=== PATIENT | female | born 1990 | race Caucasian/White ===

== ENCOUNTER 2020-07-07 11:02 | Emergency (ER) | payer OTHER, MEDICAID, SELFPAY ==
[2020-07-07 11:10] VITALS: BP 196/128; PULSE 89; RESP 20; TEMP 36.8; O2SAT 98; BMI 30.2
--- NOTE | 2020-07-07 11:17 | XR_ITS ---
EXAMINATION: XR CHEST CLINICAL INFORMATION: Shortness of breath COMPARISON: Chest radiographs 04/16/2019, 04/13/2018 TECHNIQUE: Portable upright AP view of the chest was obtained. FINDINGS: There is small airspace opacity adjacent to cardiac apex left base, consistent with small pneumonia in the appropriate clinical setting. The remainder the lungs are clear. The vascularity is normal. There is no effusion. The heart is normal in size. The hilar and mediastinal contours and bony structures are unremarkable. XR/XR chest 1V IMPRESSION: Small infiltrate left base consistent with pneumonia in the appropriate clinical setting. No effusion.
--- NOTE | 2020-07-07 11:17 | ECG_ITS ---
Test Reason : ASTHMA Blood Pressure : / mmHG Vent. Rate : 075 BPM Atrial Rate : 075 BPM P-R Int : 172 ms QRS Dur : 076 ms QT Int : 392 ms P-R-T Axes : 042 031 018 degrees QTc Int : 437 ms Normal sinus rhythm Normal ECG When compared with ECG of 27-JUL-2014 18:04, T wave amplitude has decreased in Anterior leads Referred By: Rebecca Burrell Electronically Signed By:DILIP MARQUEZ MD
--- NOTE | 2020-07-07 11:21 | ED.ASTHMA ---
HPI - Asthma General Chief Complaint: Recheck/Abnormal Lab/Rx <Rebecca Burrell NP - Last Filed: 07/07/20 16:10> Stated Complaint: Asthma <Rebecca Burrell NP - Last Filed: 07/07/20 16:10> Time Seen by Provider: 07/07/20 11:11 <Rebceca Burrell NP - Last Filed: 07/07/20 16:10> Source: patient <Rebecca Burrell NP - Last Filed: 07/07/20 16:10> Mode of arrival: ambulatory <Rebecca Burrell NP - Last Filed: 07/07/20 16:10> Limitations: no limitations <Rebecca Burrell NP - Last Filed: 07/07/20 16:10> History of Present Illness HPI Narrative: 30-year-old female with a past medical history of asthma and hypertension here from [facility]. The patient was seen at [facility] this morning for asthma symptoms of cough and wheezing x 1 week. While she was there she was noted to have a blood pressure of 204/148. patient tells me she has a mild headache. No chest pain, vision changes, nausea or vomiting. She takes labetalol 200 mg BID and has been on this dose for 5 years. She tells me she does follow-up with and always has high blood pressure. This is higher than her normal blood pressure however. No changes in her medication. She has been medication compliant. She tells me this feels like her typical asthma flare and it normally response to p.o. prednisone for a few days. she did run out of her inhaler recently. History multiple admits for asthma. Last admit 1 year ago. No history of intubations. <Rebecca Burrell NP - Last Filed: 07/07/20 16:10> MD complaint: asthma attack , shortness of breath and wheezing <MESERET Carpenter Last Filed: 07/07/20 16:10> Onset (ago): week(s) (1 week ) <EMSERET Carpenter Last Filed: 07/07/20 16:10> Severity: mild <MESERET Carpenter Last Filed: 07/07/20 16:10> Context: ran out of meds <Rebecca Burrell NP - Last Filed: 07/07/20 16:10> Associated symptoms: dry cough <Rebecca Burrell NP - Last Filed: 07/07/20 16:10> Asthma History: childhood onset <MESERET Carpenter Last Filed: 07/07/20 16:10> Related Data Home Medications: Previous Rx's Medication Instructions Recorded albuterol sulfate 2 inh INHALATION Q4-6H PRN #1 ea 07/07/20 azithromycin 250 mg PO DAILY 4 Days #4 tab 07/07/20 lisinopril 10 mg PO DAILY #30 tab 07/07/20 prednisone 40 mg PO DAILY #10 tab 07/07/20 <Rebecca Burrell NP - Last Filed: 07/07/20 16:10> Allergies/Adverse Reactions: Allergies Allergy/AdvReac Type Severity Reaction Status Date / Time No Known Allergies Allergy Unverified 04/22/20 16:02 [No Known Allergies*] <Rebecca Burrell NP - Last Filed: 07/07/20 16:10> Review of Systems Review of Systems: Yes all other systems are reviewed and are negative <MESERET Carpenter Last Filed: 07/07/20 16:10> Constitutional: Constitutional: Reports no additional constitutional complaints, Denies body ache(s), Denies chills, Denies fever(s), Reports headache(s) and Denies weakness <Rebecca Burrell NP - Last Filed: 07/07/20 16:10> Eyes: Eyes: Reports no additional eye complaints and Denies change in vision <Rebecca Burrell NP - Last Filed: 07/07/20 16:10> ENT: Reports system reviewed and no additional complaints, except as documented, Denies dizziness, Reports headache(s), Denies nasal congestion, Denies nasal discharge and Denies neck pain <MESERET Carpenter Last Filed: 07/07/20 16:10> Cardiovascular: Cardiovascular: Reports no additional cardiovascular complaints, Denies chest pain, Denies leg edema and Reports dyspnea <Rebecca Burrell NP - Last Filed: 07/07/20 16:10> Respiratory: Respiratory: Reports no additional respiratory complaints, Reports cough, Reports dyspnea and Reports wheezing <Rebecca Burrell NP - Last Filed: 07/07/20 16:10> Gastrointestinal: Gastrointestinal: Reports no additional gastrointestinal complaints, Denies abdominal pain, Denies diarrhea, Denies nausea and Denies vomiting <Rebceca Burrell NP - Last Filed: 07/07/20 16:10> Genitourinary: Genitourinary: Reports no additional female genitourinary complaints and Denies urinary incontinence <Rebecca Burrell NP - Last Filed: 07/07/20 16:10> Musculoskeletal: Musculoskeletal: Reports no additional musculoskeletal complaints, Denies back pain, Denies arthralgias, Denies joint swelling, Denies neck pain, Denies numbness and Denies tingling <Rebecca Burrell NP - Last Filed: 07/07/20 16:10> Integumentary/Breasts: Skin/Breast: Reports system reviewed and no additional complaints, except as docu and Denies rash <Rebecca Burrell NP - Last Filed: 07/07/20 16:10> Neurologic: Reports system reviewed and no additional complaints, except as documented, Denies Abnormal speech present, Denies dizziness, Reports headache(s), Denies numbness, Denies tingling and Denies weakness <Rebecca Burrell NP - Last Filed: 07/07/20 16:10> Allergic/Immunologic: Allergic/Immunologic: Reports wheezing <Rebecca Burrell NP - Last Filed: 07/07/20 16:10> [facility] Past Medical History Attestation statement: The following information was validated with the patient. <Rebecca Burrell NP - Last Filed: 07/07/20 16:10> Source: old records reviewed and nursing notes reviewed <Rebecca Burrell NP - Last Filed: 07/07/20 16:10> Medical History: Medical History Asthma Blindness Deaf HTN (hypertension) <Rebecca Burrell NP - Last Filed: 07/07/20 16:10> Social History Social History: Social History Alcohol intake: never Smoking Status: Current some day smoker Use of substances other than those prescribed or required for medical reasons: Yes Substance Use Type: Marijuana Substance Use Frequency: Occasionally Advance Directives: No Advance Directives Information Provided: No <Rebecca Burrell NP - Last Filed: 07/07/20 16:10> Physical Exam Vital Signs: Vital Signs: Last Vital Signs Temp 98.3 F 07/07/20 11:10 Pulse 89 07/07/20 14:18 Resp 20 07/07/20 11:10 BP 167/117 H 07/07/20 14:18 Pulse Ox 98 07/07/20 11:10 Body Mass Index 30.2 <Rebecca Burrell NP - Last Filed: 07/07/20 16:10> Vital Signs: Last Vital Signs Temp 98.3 F 07/07/20 11:10 Pulse 89 07/07/20 14:18 Resp 20 07/07/20 11:10 BP 167/117 H 07/07/20 14:18 Pulse Ox 98 07/07/20 11:10 Body Mass Index 30.2 <Cricket Arguello MD - Last Filed: 07/07/20 11:30> Const: General: cooperative, healthy appearing, comfortable and no acute distress <Rebecca Burrell NP - Last Filed: 07/07/20 16:10> Orientation/consciousness: patient oriented x3 <Rebecca Burrell NP - Last Filed: 07/07/20 16:10> Limitations: no limitations <Rebecca Burrell NP - Last Filed: 07/07/20 16:10> HENMT: Head: Yes normal to inspection <Rebecca Burrell NP - Last Filed: 07/07/20 16:10> Ears: hearing grossly normal bilaterally <Rebecca Burrell NP - Last Filed: 07/07/20 16:10> General nose exam: Normal external nose present <Rebecca Burrell NP - Last Filed: 07/07/20 16:10> Face and sinus: Yes normal facial exam <Rebecca Burrell NP - Last Filed: 07/07/20 16:10> Mouth: Normal oral and palatal mucosa present <Rebecca Burrell NP - Last Filed: 07/07/20 16:10> Throat: Yes posterior oropharynx normal <Rebecca Burrell NP - Last Filed: 07/07/20 16:10> Eyes: General: appearance normal, both eyes and all related structures <Rebecca Burrell NP - Last Filed: 07/07/20 16:10> Pupils: Equal, round and reactive pupils present <Rebecca Burrell NP - Last Filed: 07/07/20 16:10> Neck: Neck: Yes normal visual inspection <Rebecca Burrell NP - Last Filed: 07/07/20 16:10> Chest: Chest palpation & inspection: normal inspection of the chest <Rebecca Burrell NP - Last Filed: 07/07/20 16:10> Resp: Other: Mild expiratory wheezing. Patient is speaking full sentences in no apparent distress <Rebecca Burrell NP - Last Filed: 07/07/20 16:10> Effort & Inspection: normal respiratory effort <Rebecca Burrell NP - Last Filed: 07/07/20 16:10> Auscultation: clear to auscultation bilaterally <Rebecca Burrell NP - Last Filed: 07/07/20 16:10> Cardio: Rate: regular rate <Rebecca Burrell NP - Last Filed: 07/07/20 16:10> Rhythm: regular rhythm <Rebecca Burrell NP - Last Filed: 07/07/20 16:10> Peripheral pulses: Peripheral pulses 2+ throughout <Rebecca Burrell NP - Last Filed: 07/07/20 16:10> GI: Inspection: Yes normal to inspection <Rebecca Burrell NP - Last Filed: 07/07/20 16:10> Palpation (GI): Soft to palpation and nontender <Rebecca Burrell NP - Last Filed: 07/07/20 16:10> Auscultation: normal bowel sounds <Rebecca Burrell NP - Last Filed: 07/07/20 16:10> Back/Spine/Pelvis: Thoracic/Lumbar Spine: thoracic and lumbar spine normal to inspection <Rebecca Burrell NP - Last Filed: 07/07/20 16:10> Skin: General skin exam: no rashes or lesions noted <Rebecca Burrell NP - Last Filed: 07/07/20 16:10> Neuro: General: patient oriented x3, no focal motor deficits and normal sensation to monofilament <Rebecca Burrell NP - Last Filed: 07/07/20 16:10> Cranial nerves: Yes CN's II-XII intact bilaterally, Yes Equal, round and reactive pupils present, Yes Bilaterally intact EOM present, Yes Nystagmus not present, Yes Normal facial strength present and Yes Midline tongue present <Rebecca Burrell NP - Last Filed: 07/07/20 16:10> Cognition (Neuro): normal cognition <Rebecca Burrell NP - Last Filed: 07/07/20 16:10> Speech: No Abnormal speech present <Rebecca Burrell NP - Last Filed: 07/07/20 16:10> Gait exam (Neuro): Normal gait present <Rebecca Burrell NP - Last Filed: 07/07/20 16:10> Motor exam (neuro): 5/5 motor strength present throughout <Rebecca Burrell NP - Last Filed: 07/07/20 16:10> Sensory Exam: Normal double simultaneous stimulation for sensation <Rebecca Burrell NP - Last Filed: 07/07/20 16:10> Coordination: [id number] test normal, [id number] test normal and tandem gait normal <Rebecca Burrell NP - Last Filed: 07/07/20 16:10> Extrem: General: Yes normal to inspection <Rebecca Burrell NP - Last Filed: 07/07/20 16:10> Course Course Course Narrative: 30-year-old female with a past medical history of asthma and hypertension here with cough, wheezing which she contributes to an asthma flare and high blood pressure. Seen at [facility] and sent to emergency department for high blood pressure. The patient tells me she has had head pressure for years and has been compliant with her medication. On arrival the patient has a blood pressure of 196/128 and repeat 220/140. She does have a headache with no other neurological complaints. She is well appearing. Will check labs, EKG, UA. Will plan for dose of IV antihypertensives and p.o. anti hypertensives. Discussed case with dr arguello. 1150- Chest x-ray shows a left lower lobe infiltrate. COVID testing sent. Antibiotics ordered. 1230-Repeat blood pressure 186/126. Heart rate 80. plan to repeat labetaolol. 1420- blood pressure now 167/117 after several doses of labetalol. Patient would like to be discharged home. She is feeling improved. Likely asthma flare with uncontrolled hypertension. Plan to discuss patient with her primary care doctor for close follow-up outpatient. labs reviewed which were unremarkable. The patient does have 1+ protein in her urine otherwise all negative. EKG shows no ischemia. 1430-Reached out to patient's PCP who tells me she has not seen the patient since 2015. Per patient Dr Leland shaffer title closer has been refilling her labetalol. Will discuss with them for f/u. 1559- spoke to Dr. Andrew from nephrology. Recommended lisinopril 10 mg daily and follow up 1-2 days and their office. Reviewed plan of care with patient. Discussed importance of close follow-up with her blood pressure was very high today. Reviewed worrisome signs and symptoms and when to return to the emergency department. Comfortable with discharge home. <Rebecca Burrell NP - Last Filed: 07/07/20 16:10> I have discussed the case and management with the LINNETTE <Cricket Arguello MD - Last Filed: 07/07/20 11:30> MDM - Asthma Medical Records Attestation: I reviewed the patient's medical records. <Rebecca Burrell NP - Last Filed: 07/07/20 16:10> Lab Data Attestation: I reviewed the patient's lab results. <Rebecca Burrell NP - Last Filed: 07/07/20 16:10> Result diagrams: : 07/07/20 11:49 07/07/20 11:49 <Rebecca Burrell, OSTEOLOGIST - Last Filed: 07/07/20 16:10> Labs: Lab Results 07/07/20 07/07/20 07/07/20 Range/Units 11:49 11:49 11:49 WBC 13.5 H (4.8-10.8) X10*3/uL RBC 5.18 (4.20-5.50) X10*6/uL Hgb 16.8 H (12.0-16.0) g/dl Hct 47.6 H (37-47) % MCV 91.9 (80-98) fL MCH 32.4 (27.0-33.0) pg MCHC 35.3 H (31.0-35.0) g/dl RDW 11.9 (11.0-16.0) % Plt Count 266 (160-400) X10*3/uL MPV 10.4 (9.4-12.3) fL Immature Gran % (Auto) 0.4 (0.0-0.4) % Neut % (Auto) 75.9 H (45-73) % Lymph % (Auto) 16.8 L (20-40) % [place] % (Auto) 6.0 (2-11) % Eos % (Auto) 0.5 (0-4) % Baso % (Auto) 0.4 (0-2) % Lymph # (Auto) 2.3 (1.2-4.9) X10*3/uL [place] # (Auto) 0.8 (0.1-1.2) X10*3/uL Eos # (Auto) 0.1 (0.0-0.4) X10*3/uL Baso # (Auto) 0.1 (0.0-0.2) X10*3/uL Abs Immat Gran (auto) 0.06 H (0.00-0.03) X10*3/uL Absolute Neuts (auto) 10.3 H (2.0-8.3) X10*3/uL Absolute Nucleated RBC 0.000 (0.0-0.012) X10*3/uL Nucleated RBC % (auto) 0.0 (0.0-0.2) /100WBC Hold Blue Top Sodium 139 (135-145) mmol/L Potassium 3.6 (3.3-5.1) mmol/l Chloride 103 (96-108) mmol/L Carbon Dioxide 26 (22-29) mmol/L Anion Gap 14 (12-20) BUN 6 L (9-16) mg/dL Creatinine 0.63 (0.5-1.4) mg/dL Estim Creat Clear Calc 123.6 Estimated GFR > 60 Random Glucose 92 (60-115) mg/dL Calcium 9.4 (8.4-10.2) mg/dL Total Bilirubin 0.8 (0.0-1.0) mg/dL Direct Bilirubin 0.3 (0.0-0.5) mg/dL AST 9 (5-31) U/L ALT 9 (0-31) U/L Alkaline Phosphatase 54 (39-117) U/L Troponin I High Sens < 3.5 (<3.5-17.0) ng/L Total Protein 7.2 (6.5-8.0) g/dL Albumin 4.5 (3.5-5.0) g/dL Urine Color Urine Appearance Urine pH (5.0-8.0) Ur Specific Gilbert (1.005-1.025) Urine Protein (NEG-TRACE) MG/DL Urine Glucose (UA) (NEG) MG/DL Urine Ketones (NEG) MG/DL Urine Blood (NEG) Urine Nitrite (NEG) Ur Leukocyte Esterase (NEG) Urine RBC (0) /HPF Urine WBC (0-4) /HPF Ur Squamous Epith Cells /LPF Urine Bacteria /LPF Urine Mucus /LPF Urine Test (NEGATIVE) Coronavirus (PCR) (Negative) Influenza Type A (PCR) (Negative) Influenza Type B (PCR) (Negative) RSV RNA Qual (PCR) (Negative) 07/07/20 07/07/20 07/07/20 Range/Units 11:49 12:18 13:21 WBC (4.8-10.8) X10*3/uL RBC (4.20-5.50) X10*6/uL Hgb (12.0-16.0) g/dl Hct (37-47) % MCV (80-98) fL MCH (27.0-33.0) pg MCHC (31.0-35.0) g/dl RDW (11.0-16.0) % Plt Count (160-400) X10*3/uL MPV (9.4-12.3) fL Immature Gran % (Auto) (0.0-0.4) % Neut % (Auto) (45-73) % Lymph % (Auto) (20-40) % [place] % (Auto) (2-11) % Eos % (Auto) (0-4) % Baso % (Auto) (0-2) % Lymph # (Auto) (1.2-4.9) X10*3/uL [place] # (Auto) (0.1-1.2) X10*3/uL Eos # (Auto) (0.0-0.4) X10*3/uL Baso # (Auto) (0.0-0.2) X10*3/uL Abs Immat Gran (auto) (0.00-0.03) X10*3/uL Absolute Neuts (auto) (2.0-8.3) X10*3/uL Absolute Nucleated RBC (0.0-0.012) X10*3/uL Nucleated RBC % (auto) (0.0-0.2) /100WBC Hold Blue Top SEE NOTE Sodium (135-145) mmol/L Potassium (3.3-5.1) mmol/l Chloride (96-108) mmol/L Carbon Dioxide (22-29) mmol/L Anion Gap (12-20) BUN (9-16) mg/dL Creatinine (0.5-1.4) mg/dL Estim Creat Clear Calc Estimated GFR Random Glucose (60-115) mg/dL Calcium (8.4-10.2) mg/dL Total Bilirubin (0.0-1.0) mg/dL Direct Bilirubin (0.0-0.5) mg/dL AST (5-31) U/L ALT (0-31) U/L Alkaline Phosphatase (39-117) U/L Troponin I High Sens (<3.5-17.0) ng/L Total Protein (6.5-8.0) g/dL Albumin (3.5-5.0) g/dL Urine Color YELLOW Urine Appearance HAZY Urine pH 6.5 (5.0-8.0) Ur Specific Gilbert 1.025 (1.005-1.025) Urine Protein 1+ H (NEG-TRACE) MG/DL Urine Glucose (UA) NEG (NEG) MG/DL Urine Ketones 15 (NEG) MG/DL Urine Blood NEG (NEG) Urine Nitrite NEG (NEG) Ur Leukocyte Esterase TRACE H (NEG) Urine RBC 1-4 (0) /HPF Urine WBC 1-4 (0-4) /HPF Ur Squamous Epith Cells 3+ /LPF Urine Bacteria 1+ /LPF Urine Mucus 2+ /LPF Urine Test NEGATIVE (NEGATIVE) Coronavirus (PCR) NEGATIVE (Negative) Influenza Type A (PCR) NEGATIVE (Negative) Influenza Type B (PCR) NEGATIVE (Negative) RSV RNA Qual (PCR) NEGATIVE (Negative) <Rebecca Burrell NP - Last Filed: 07/07/20 16:10> Lab Results 07/07/20 07/07/20 07/07/20 Range/Units 11:49 11:49 11:49 WBC 13.5 H (4.8-10.8) X10*3/uL RBC 5.18 (4.20-5.50) X10*6/uL Hgb 16.8 H (12.0-16.0) g/dl Hct 47.6 H (37-47) % MCV 91.9 (80-98) fL MCH 32.4 (27.0-33.0) pg MCHC 35.3 H (31.0-35.0) g/dl RDW 11.9 (11.0-16.0) % Plt Count 266 (160-400) X10*3/uL MPV 10.4 (9.4-12.3) fL Immature Gran % (Auto) 0.4 (0.0-0.4) % Neut % (Auto) 75.9 H (45-73) % Lymph % (Auto) 16.8 L (20-40) % [place] % (Auto) 6.0 (2-11) % Eos % (Auto) 0.5 (0-4) % Baso % (Auto) 0.4 (0-2) % Lymph # (Auto) 2.3 (1.2-4.9) X10*3/uL [place] # (Auto) 0.8 (0.1-1.2) X10*3/uL Eos # (Auto) 0.1 (0.0-0.4) X10*3/uL Baso # (Auto) 0.1 (0.0-0.2) X10*3/uL Abs Immat Gran (auto) 0.06 H (0.00-0.03) X10*3/uL Absolute Neuts (auto) 10.3 H (2.0-8.3) X10*3/uL Absolute Nucleated RBC 0.000 (0.0-0.012) X10*3/uL Nucleated RBC % (auto) 0.0 (0.0-0.2) /100WBC Hold Blue Top Sodium 139 (135-145) mmol/L Potassium 3.6 (3.3-5.1) mmol/l Chloride 103 (96-108) mmol/L Carbon Dioxide 26 (22-29) mmol/L Anion Gap 14 (12-20) BUN 6 L (9-16) mg/dL Creatinine 0.63 (0.5-1.4) mg/dL Estim Creat Clear Calc 123.6 Estimated GFR > 60 Random Glucose 92 (60-115) mg/dL Calcium 9.4 (8.4-10.2) mg/dL Total Bilirubin 0.8 (0.0-1.0) mg/dL Direct Bilirubin 0.3 (0.0-0.5) mg/dL AST 9 (5-31) U/L ALT 9 (0-31) U/L Alkaline Phosphatase 54 (39-117) U/L Troponin I High Sens < 3.5 (<3.5-17.0) ng/L Total Protein 7.2 (6.5-8.0) g/dL Albumin 4.5 (3.5-5.0) g/dL Urine Color Urine Appearance Urine pH (5.0-8.0) Ur Specific Gilbert (1.005-1.025) Urine Protein (NEG-TRACE) MG/DL Urine Glucose (UA) (NEG) MG/DL Urine Ketones (NEG) MG/DL Urine Blood (NEG) Urine Nitrite (NEG) Ur Leukocyte Esterase (NEG) Urine RBC (0) /HPF Urine WBC (0-4) /HPF Ur Squamous Epith Cells /LPF Urine Bacteria /LPF Urine Mucus /LPF Urine Test (NEGATIVE) Coronavirus (PCR) (Negative) Influenza Type A (PCR) (Negative) Influenza Type B (PCR) (Negative) RSV RNA Qual (PCR) (Negative) 07/07/20 07/07/20 07/07/20 Range/Units 11:49 12:18 13:21 WBC (4.8-10.8) X10*3/uL RBC (4.20-5.50) X10*6/uL Hgb (12.0-16.0) g/dl Hct (37-47) % MCV (80-98) fL MCH (27.0-33.0) pg MCHC (31.0-35.0) g/dl RDW (11.0-16.0) % Plt Count (160-400) X10*3/uL MPV (9.4-12.3) fL Immature Gran % (Auto) (0.0-0.4) % Neut % (Auto) (45-73) % Lymph % (Auto) (20-40) % [place] % (Auto) (2-11) % Eos % (Auto) (0-4) % Baso % (Auto) (0-2) % Lymph # (Auto) (1.2-4.9) X10*3/uL [place] # (Auto) (0.1-1.2) X10*3/uL Eos # (Auto) (0.0-0.4) X10*3/uL Baso # (Auto) (0.0-0.2) X10*3/uL Abs Immat Gran (auto) (0.00-0.03) X10*3/uL Absolute Neuts (auto) (2.0-8.3) X10*3/uL Absolute Nucleated RBC (0.0-0.012) X10*3/uL Nucleated RBC % (auto) (0.0-0.2) /100WBC Hold Blue Top SEE NOTE Sodium (135-145) mmol/L Potassium (3.3-5.1) mmol/l Chloride (96-108) mmol/L Carbon Dioxide (22-29) mmol/L Anion Gap (12-20) BUN (9-16) mg/dL Creatinine (0.5-1.4) mg/dL Estim Creat Clear Calc Estimated GFR Random Glucose (60-115) mg/dL Calcium (8.4-10.2) mg/dL Total Bilirubin (0.0-1.0) mg/dL Direct Bilirubin (0.0-0.5) mg/dL AST (5-31) U/L ALT (0-31) U/L Alkaline Phosphatase (39-117) U/L Troponin I High Sens (<3.5-17.0) ng/L Total Protein (6.5-8.0) g/dL Albumin (3.5-5.0) g/dL Urine Color YELLOW Urine Appearance HAZY Urine pH 6.5 (5.0-8.0) Ur Specific [place] 1.025 (1.005-1.025) Urine Protein 1+ H (NEG-TRACE) MG/DL Urine Glucose (UA) NEG (NEG) MG/DL Urine Ketones 15 (NEG) MG/DL Urine Blood NEG (NEG) Urine Nitrite NEG (NEG) Ur Leukocyte Esterase TRACE H (NEG) Urine RBC 1-4 (0) /HPF Urine WBC 1-4 (0-4) /HPF Ur Squamous Epith Cells 3+ /LPF Urine Bacteria 1+ /LPF Urine Mucus 2+ /LPF Urine Test NEGATIVE (NEGATIVE) Coronavirus (PCR) NEGATIVE (Negative) Influenza Type A (PCR) NEGATIVE (Negative) Influenza Type B (PCR) NEGATIVE (Negative) RSV RNA Qual (PCR) NEGATIVE (Negative) <Cricket Arguello MD - Last Filed: 07/07/20 11:30> Imaging Data Chest x-ray: Attestation: I personally reviewed and interpreted this imaging study as follows: <Rebecca Burrell NP - Last Filed: 07/07/20 16:10> Radiologist's impression: EXAMINATION: XR CHEST CLINICAL INFORMATION: Shortness of breath COMPARISON: Chest radiographs 04/16/2019, 04/13/2018 TECHNIQUE: Portable upright AP view of the chest was obtained. FINDINGS: There is small airspace opacity adjacent to cardiac apex left base, consistent with small pneumonia in the appropriate clinical setting. The remainder the lungs are clear. The vascularity is normal. There is no effusion. The heart is normal in size. The hilar and mediastinal contours and bony structures are unremarkable. XR/XR chest 1V IMPRESSION: Small infiltrate left base consistent with pneumonia in the appropriate clinical setting. No effusion. <Rebecca Burrell NP - Last Filed: 07/07/20 16:10> ECG Data Attestation: I personally reviewed and interpreted this ECG as follows: <Rebecca Burrell NP - Last Filed: 07/07/20 16:10> ECG interpretation date: 07/07/20 <Rebecca Burrell NP - Last Filed: 07/07/20 16:10> ECG interpretation time: 12:33 <Rebecca Burrell NP - Last Filed: 07/07/20 16:10> Interpretation: normal sinus rhythm with a rate of 75, normal FL, normal QRS, normal QT, normal ST segment <Rebecca Burrell NP - Last Filed: 07/07/20 16:10> Discharge Plan Discharge Clinical Impression: Pneumonia, Asthma with acute exacerbation, Hypertension <Rebecca Burrell NP - Last Filed: 07/07/20 16:10> Patient Disposition: Home, Self-Care <Rebecca Burrell NP - Last Filed: 07/07/20 16:10> Instructions: Asthma (ED), Bacterial Pneumonia (ED), Hypertension (ED) <Rebecca Burrell NP - Last Filed: 07/07/20 16:10> Additional Instructions: Your blood pressure was very high today. I spoke to your title closer and they recommended close follow-up with them in the office in 1-2 days Starter antibiotics and steroids tomorrow Use your inhaler every 4-6 hours as needed for cough or wheezing Increase fluids, rest Take Motrin or Tylenol if able as needed for pain or fever <Rebecca Burrell NP - Last Filed: 07/07/20 16:10> Prescriptions: New prednisone 20 mg tablet 40 mg PO DAILY Qty: 10 RF: 0 albuterol sulfate 90 mcg/actuation aerosol powdr breath activated 2 inh inhalation Q4-6H PRN (Reason: shortness of breath or wheezing) Qty: 1 RF: 0 azithromycin 250 mg tablet 250 mg PO DAILY 4 Days Qty: 4 RF: 0 lisinopril 10 mg tablet 10 mg PO DAILY Qty: 30 RF: 0 <Rebecca Burrell NP - Last Filed: 07/07/20 16:10> Referrals: Carlitos Ha MD [Physician] - 2 days Crissy Jimenez MD [Primary Care Provider] - 2 days <Rebecca Burrell NP - Last Filed: 07/07/20 16:10> Stand Alone Forms: Work/School Release <Rebecca Burrell NP - Last Filed: 07/07/20 16:10> Interventions: ED Discharge Assessment Last Done: 07/07/20 16:06 <Rebecca Burrell NP - Last Filed: 07/07/20 16:10> Discharge Date/Time: 07/07/20 16:06 <Rebecca Burrell NP - Last Filed: 07/07/20 16:10>
[2020-07-07] MEDS: Albuterol/Iprat 2.5/0.5MG 3 ML AMPUL.NEB INHALE (11:46)
--- NOTE | 2020-07-07 11:48 | PC.NURSE ---
2 attempts for iv stick unsuccessful
[2020-07-07 11:49] VITALS: PULSE 72; O2SAT 95
[2020-07-07 11:54] VITALS: BP 220/140; PULSE 85
[2020-07-07] MEDS: Labetalol HCL 100 MG/20 ML VIAL 10 MG IVPUSH ×3 (11:54→13:37)
[2020-07-07] MEDS: lisinopriL 20 MG TABLET PO (11:54)
[2020-07-07 11:55] LABS: MANUAL DIFF FLAG NO
[2020-07-07] MEDS: predniSONE 20 MG TABLET 60 MG PO (11:55)
[2020-07-07 11:56] LABS: Basophils Absolute Auto 0.1 X10*3/uL (0.0-0.2); Basophils Percent Auto 0.4 % (0-2); Eosinophils Absolute Auto 0.1 X10*3/uL (0.0-0.4); Eosinophils Percent Auto 0.5 % (0-4); Hematocrit 47.6 % (37-47); Hemoglobin 16.8 g/dl (12.0-16.0); Imm Gran Abs Auto 0.06 X10*3/uL (0.00-0.03); Imm Gran Pct Auto 0.4 % (0.0-0.4); Lymphocytes Absolute Auto 2.3 X10*3/uL (1.2-4.9); Lymphocytes Percent Auto 16.8 % (20-40); Mean Corpuscular HGB Conc 35.3 g/dl (31.0-35.0); Mean Corpuscular Hemoglobin 32.4 pg (27.0-33.0); Mean Corpuscular Volume 91.9 fL (80-98); Mean Platelet Volume 10.4 fL (9.4-12.3); Monocytes Absolute Auto 0.8 X10*3/uL (0.1-1.2); Neutrophils Absolute Auto 10.3 X10*3/uL (2.0-8.3); Neutrophils Percent Auto 75.9 % (45-73); Platelet Count 266 X10*3/uL (160-400); Red Blood Count 5.18 X10*6/uL (4.20-5.50); Red Cell Distribution Width 11.9 % (11.0-16.0); White Blood Count 13.5 X10*3/uL (4.8-10.8)
[2020-07-07] MEDS: Azithromycin 500 MG TABLET PO (12:01)
--- NOTE | 2020-07-07 12:05 | PC.NURSE ---
pt taken to ct scan via stretcher
[2020-07-07 12:25] LABS: Alanine Aminotransferase 9 U/L (0-31); Albumin Level 4.5 g/dL (3.5-5.0); Alkaline Phosphatase 54 U/L (39-117); Anion Gap 14 (12-20); Aspartate Amino Transferase 9 U/L (5-31); Bilirubin Direct 0.3 mg/dL (0.0-0.5); Bilirubin Total 0.8 mg/dL (0.0-1.0); Blood Urea Nitrogen 6 mg/dL (9-16); Calcium 9.4 mg/dL (8.4-10.2); Carbon Dioxide 26 mmol/L (22-29); Chloride 103 mmol/L (96-108); Creatinine Clr Calc Pharmacy 123.6; Estimated Glomerular Filt Rate > 60; Glucose Random 92 mg/dL (60-115); Potassium 3.6 mmol/l (3.3-5.1); Sodium 139 mmol/L (135-145); Total Protein 7.2 g/dL (6.5-8.0)
[2020-07-07 12:31] LABS: Troponin-I High Sensitivity < 3.5 ng/L (<3.5-17.0)
[2020-07-07 12:41] VITALS: BP 188/122; PULSE 85
[2020-07-07 13:21] LABS: Influenza A PCR NEGATIVE (Negative); Influenza B PCR NEGATIVE (Negative); Resp Syncy Virus RNA Qual PCR NEGATIVE (Negative); SARS COV2 PCR INHOUSE NEGATIVE (Negative)
[2020-07-07 13:30] LABS: Glucose Urine UA NEG (NEG); Leukocyte Esterase Urine TRACE (NEG); Nitrite Urine NEG (NEG); PH 6.5 (5.0-8.0); Specific Gravity - Urine 1.025 (1.005-1.025); Urine Blood NEG (NEG); Urine Ketones 15 MG/DL (NEG); Urine Protein 1+ MG/DL (NEG-TRACE)
[2020-07-07 13:34] LABS: Appearance Urine HAZY; Color Urine YELLOW
[2020-07-07 13:53] LABS: Bacteria Urine 1+ /LPF; Mucus Urine 2+ /LPF; Squamous Epithelial Cell Urine 3+ /LPF
[2020-07-07 14:18] VITALS: BP 167/117; PULSE 89
[2020-07-07 15:02] LABS: UPreg QC Valid YES; Urine Pregnancy NEGATIVE (NEGATIVE)
== END 2020-07-07 16:06 | disposition home or self-care (01) ==
PROVIDERS: Nurse Practitioner Family; Emergency Provider Emergency Medicine; PCP Internal Medicine
DX: J18.9 Pneumonia, unspecified organism (principal); J45.901 Unspecified asthma with (acute) exacerbation; R05 Cough; R51.9 Headache, unspecified; I10 Essential (primary) hypertension; F17.200 Nicotine dependence, unspecified, uncomplicated; Z71.6 Tobacco abuse counseling; F12.90 Cannabis use, unspecified, uncomplicated; Z20.828 Contact with and (suspected) exposure to other viral communicable diseases; Z79.899 Other long term (current) drug therapy
CPT/HCPCS: 0241U; 36415; 71045; 80048; 80076; 81001; 81025; 84484; 85025; 87086; 93005; 96374; 96376; 99284

== ENCOUNTER 2021-04-22 09:28 | Emergency (ER) | payer OTHER, MEDICAID, SELFPAY ==
--- NOTE | ~2021-04-22 | XR_ITS ---
EXAMINATION: XR CHEST CLINICAL INFORMATION: Cough/congestion COMPARISON: Chest radiograph from 07/07/2020 TECHNIQUE: 2 views of the chest were obtained. FINDINGS: Patchy radiopacities involving the medial right lung base and lateral left lung base may represent developing infectious/inflammatory etiology with superimposed atelectasis. No pneumothorax. Trachea is midline. Cardiomediastinal silhouette is not enlarged. No large pleural effusion. Osseous structures are intact. Soft tissues are unremarkable. XR/XR chest 2V IMPRESSION: Patchy radiopacities involving the medial right lung base and lateral left lung base may represent developing infectious/inflammatory etiology with superimposed atelectasis.
[2021-04-22 09:33] VITALS: PULSE 82; RESP 18; TEMP 36.6; O2SAT 99
--- NOTE | 2021-04-22 09:35 | PC.NURSE ---
x3 unable to obtain bp pt reports htn
--- NOTE | 2021-04-22 10:06 | ED_ITS ---
HPI - URI/Sore Throat General Chief Complaint: Upper Respiratory Symptoms Stated Complaint: asthma Time Seen by Provider: 04/22/21 09:57 Source: patient Mode of arrival: ambulatory Limitations: no limitations History of Present Illness HPI Narrative: This is a 30-year-old female with a past medical history of asthma. She presents to the emergency department with concerns of a productive cough that is been happening for about 9 days. She states it has been progressively worsening. She states that she is coughing up greenish yellowish sputum. She also adds that she gets this yearly around this time of year. She is a daily smoker she smokes 2 packs per day. She denies chest pain, shortness of breath, fevers, chills, nausea, vomiting, diarrhea, abdominal pain. She denies any recent sick contacts. She states that she is really only worried about this cough that has been going on for quite some time and wont go away. MD elicited complaint: cough Pertinent past history: asthma Onset (ago): day(s) (Nine) Consistency: intermittent Severity: moderate Description of mucous: yellow and green Related Data Previous Rx's Medication Instructions Recorded albuterol sulfate 90 mcg/actuation 2 inh INHALATION Q4-6H PRN #1 ea 07/07/20 breath activated powder inhaler azithromycin 250 mg tablet 250 mg PO DAILY 4 Days #4 tab 07/07/20 lisinopril 10 mg tablet 10 mg PO DAILY #30 tab 07/07/20 prednisone 20 mg tablet 40 mg PO DAILY #10 tab 07/07/20 albuterol sulfate 90 mcg/actuation 1 inh INHALATION QID PRN #8.5 g 04/22/21 aerosol inhaler doxycycline monohydrate 100 mg 100 mg PO BID 10 Days #20 cap 04/22/21 capsule prednisone 20 mg tablet 40 mg PO DAILY 5 Days #10 tab 04/22/21 Allergies Allergy/AdvReac Type Severity Reaction Status Date / Time No Known Allergies Allergy Unverified 04/22/20 16:02 [No Known Allergies*] Review of Systems Review of Systems: Constitutional : No Weight loss, No Fever, No Chills, No Night Sweats, No Fatigue, No Malaise ENT/Mouth : No Hearing loss, No Ear Pain, No Nasal Congestion, No Sinus Pain, No Hoarseness, No sore throat, No Rhinorrhea, No Swallowing Difficulty Eyes: No Eye Pain, No Swelling, No Redness, No Foreign Body, No Discharge, No Vision Changes Cardiovascular : No Chest Pain, No SOB, No Dyspnea on Exertion, No Orthopnea, No Edema, No Palpitations Respiratory : + Cough, + Sputum, No Wheezing, No Smoke Exposure, No Dyspnea Gastrointestinal : No Nausea, No Vomiting, No Diarrhea, No Constipation, No abdominal Pain, No Hematochezia, No Melena Genitourinary : no irregular bleeding, No Dysuria, No Urinary Frequency, No Hematuria, No Urinary Incontinence, No Urgency, No Flank Pain, No Urinary Flow C hanges, No Hesitancy Musculoskeletal : No joint pain, No Myalgias, No Joint Swelling Skin : No Skin Lesions, No rash Neuro : No Weakness, No Numbness, No Paresthesias, No Loss of Consciousness, No Dizziness, No Headache Psych : No Anxiety/Panic, No Depression, No SI/HI/AH/VH, No Social Issues, Heme/Lymph: No Bruising, No Bleeding,No Lymphadenopathy Endocrine : No Polyuria, No Polydipsia, No Temperature Intolerance Yes all other systems are reviewed and are negative [facility] Past Medical History Attestation statement: The following information was validated with the patient. Source: old records reviewed Medical History Asthma Blindness Deaf HTN (hypertension) Social History Social History Alcohol intake: never Substance Use Type: Marijuana Advance Directives: No Advance Directives Information Provided: No Physical Exam Vital Signs: Vital Signs: Last Vital Signs Temp 97.8 F 04/22/21 09:33 Pulse 82 04/22/21 09:33 Resp 18 04/22/21 09:33 Pulse Ox 99 04/22/21 09:33 Body Mass Index 0.3 vital signs have been reviewed as normal and appeared to be correct. Blood pressure normal. Heart rate normal. Respiration rate normal. Temperature normal. Oxygen saturation normal. Appearance: Alert. Oriented X3. No acute distress. Head: Normal external exam. Normocephalic. Eyes: PERRLA. EOMI. Conjunctiva and sclera normal. Eyelids normal. ENT: Pharynx normal. Uvula midline. Moist mucous membranes. No trismus noted. No drooling noted. No muffled voice noted. Neck: Normal inspection. Neck supple. FROM. No adenopathy. No meningeal signs. CVS: Normal heart rate and rhythm. Heart sound normal. No murmurs noted. Pulses normal throughout. Respiratory: No respiratory distress. Painless inspiration. Breath sounds normal. No wheezes/rales/rhonchi noted. Chest nontender. No accessory muscle usage noted or decreased air movement noted. Abdomen: Soft and nontender. Nondistended. No guarding. No rigidity. Bowel sounds normal in all 4 quadrants. No distention noted. No organomegaly noted. No visible injury noted. No rebound tenderness. Negative Rovsing sign. Negative obturator's sign. Negative psoas sign. Negative Ferris sign. Back: No CVA tenderness. Full range of motion noted. Skin: Skin warm and dry. Normal skin color. Normal skin turgor. No rashes/lesions/lacerations noted. Extremities: Extremities exhibit normal range of motion. Extremities nontender. Neuro: Oriented X 3. No motor deficit. No sensory deficit. Reflexes normal. Normal steady gait. Course Course Course Narrative: This is a 30-year-old female that reports cough for 9 days with this productive nature of yellow-green sputum. She is an everyday smoker 2 packs per day. She states the cough has been progressively worsening, and wont go away. She denies fevers, chills, shortness of breath, chest pain, nausea, vomiting, diarrhea. She has not had any sick contacts. Past medical history significant for asthma. She states that around this time of year she always gets bronchitis. There is no significant findings on physical exam. Due to the patient's history a chest x-ray has been ordered to rule out pneumonia. Chest x-ray reveals a possible infectious/inflammatory etiology with s uperimposed atelectasis. Will treat this patient for a upper respiratory tract infection. She will be discharged home on doxycycline, and an albuterol inhaler for shortness of breath. She has been educated on the diagnosis, and planned and she has no further questions at this time. She has also been informed that she will be called back if her flu/RSV/COVID test comes back positive. MDM - URI/Sore Throat Imaging Data Chest x-ray: Attestation: I personally reviewed and interpreted this imaging study as follows: Radiologist's impression: FINDINGS: Patchy radiopacities involving the medial right lung base and lateral left lung base may represent developing infectious/inflammatory etiology with superimposed atelectasis. No pneumothorax. Trachea is midline. Cardiomediastinal silhouette is not enlarged. No large pleural effusion. Osseous structures are intact. Soft tissues are unremarkable. XR/XR chest 2V IMPRESSION: Patchy radiopacities involving the medial right lung base and lateral left lung base may represent developing infectious/inflammatory etiology with superimposed atelectasis. Discharge Plan Discharge Clinical Impression: Upper respiratory infection, Viral infection, Cough Patient Disposition: Home, Self-Care Instructions: Upper Respiratory Infection (ED), Acute Cough (ED) Additional Instructions: Take medications as prescribed is important that he take all of her antibiotics. Drink plenty of fluids Follow-up with the primary care provider If your flu/COVID/RSV results are positive, he will receive a phone call from the hospital. Return to the emergency department with new or worsening symptoms. Or if he develops shortness breath, fevers, chills, chest pain Prescriptions: New doxycycline monohydrate 100 mg capsule 100 mg PO BID 10 Days Qty: 20 RF: 0 albuterol sulfate 90 mcg/actuation HFA aerosol inhaler 1 inh inhalation QID PRN (Reason: shortness of breath or wheezing) Qty: 8.5 RF: 0 prednisone 20 mg tablet 40 mg PO DAILY 5 Days Qty: 10 RF: 0 No Action prednisone 20 mg tablet 40 mg PO DAILY Qty: 10 RF: 0 albuterol sulfate 90 mcg/actuation aerosol powdr breath activated 2 inh inhalation Q4-6H PRN (Reason: shortness of breath or wheezing) Qty: 1 RF: 0 azithromycin 250 mg tablet 250 mg PO DAILY 4 Days Qty: 4 RF: 0 lisinopril 10 mg tablet 10 mg PO DAILY Qty: 30 RF: 0 Referrals: Crissy Jimenez MD [Primary Care Provider] - 2 days Stand Alone Forms: Work/School Release
[2021-04-22 13:41] LABS: Influenza A PCR NEGATIVE (Negative); Influenza B PCR NEGATIVE (Negative); Resp Syncy Virus RNA Qual PCR NEGATIVE (Negative); SARS COV2 PCR INHOUSE NEGATIVE (Negative)
== END 2021-04-22 10:44 | disposition home or self-care (01) ==
PROVIDERS: Physician Assistant Medical; Emergency Provider Emergency Medicine; PCP Internal Medicine
DX: B34.9 Viral infection, unspecified (principal); J06.9 Acute upper respiratory infection, unspecified; J45.909 Unspecified asthma, uncomplicated; R05 Cough; Z20.822 Contact with and (suspected) exposure to COVID-19
CPT/HCPCS: 0241U; 36415; 71046; 99283

== ENCOUNTER 2021-08-22 08:56 | Outpatient (REF) | payer OTHER, MEDICAID, SELFPAY ==
[2021-08-22 09:41] LABS: COVID-19 Test Positive (Negative); IDNOW Serial# 16C4AD1C
== END 2021-08-22 08:57 | disposition home or self-care (01) ==
LOC: HO.LAB 08:56
PROVIDERS: Visit Provider Internal Medicine
DX: Z20.822 Contact with and (suspected) exposure to COVID-19 (principal)
CPT/HCPCS: 87635; C9803

== ENCOUNTER 2022-12-19 16:45 | Emergency (ER) | payer OTHER, MEDICAID, SELFPAY ==
--- NOTE | ~2022-12-19 | XR_ITS ---
EXAMINATION: XR CHEST CLINICAL INFORMATION: Hypertension COMPARISON: 04/22/2021 TECHNIQUE: 2 views of the chest were obtained. FINDINGS: Heart and mediastinum normal. Right lung clear. Minor left lower lobe airspace disease with small amount of presumably parapneumonic effusion. XR/XR chest 2V IMPRESSION: Left lower lobe pneumonia with small parapneumonic effusion.
--- NOTE | 2022-12-19 16:59 | ED.GENADULT ---
HPI - General Adult General Stated complaint: High blood pressure Related Data Previous Rx's Medication Instructions Recorded albuterol sulfate 90 mcg/actuation 2 inh inhalation Q4-6H PRN 07/07/20 breath activated powder inhaler shortness of breath or wheezing #1 ea azithromycin 250 mg tablet 250 mg PO DAILY 4 days #4 tabs 07/07/20 lisinopril 10 mg tablet 10 mg PO DAILY #30 tabs 07/07/20 prednisone 20 mg tablet 40 mg PO DAILY #10 tabs 07/07/20 albuterol sulfate 90 mcg/actuation 1 inh inhalation QID PRN shortness 04/22/21 aerosol inhaler of breath or wheezing #8.5 grams doxycycline monohydrate 100 mg 100 mg PO BID 10 days #20 caps 04/22/21 capsule prednisone 20 mg tablet 40 mg PO DAILY rash 5 days #10 tabs 04/22/21 Allergies Allergy/AdvReac Type Severity Reaction Status Date / Time No Known Allergies Allergy Unverified 04/22/20 16:02 [No Known Allergies*] PMFSH Past Medical History Medical History Asthma Blindness Deaf HTN (hypertension) Social History Social History Alcohol intake: never Substance Use Type: Marijuana Course Course Course Narrative: This is an RME: Additional HPI, ROS, PE not included below will be deferred to primary provider. 32 y/o F, hx of hypertension and asthma, presenting to the ER for high blood pressure. She states that she has had chest congestion and productive cough for the last 2 weeks, went to urgent care and was sent here as her BP was elevated - systolically in the 210s. 254/147. Currently on labetalol, took this morning. Slight headache, no weakness or chest pain. Given elevated BP, pt will be brought back to the main ED for further treatment. Discharge Plan Discharge Prescriptions: No Action prednisone 20 mg tablet 40 mg PO DAILY Qty: 10 0RF albuterol sulfate 90 mcg/actuation aerosol powdr breath activated 2 inh inhalation Q4-6H PRN (Reason: shortness of breath or wheezing) Qty: 1 0RF azithromycin 250 mg tablet 250 mg PO DAILY 4 Days Qty: 4 0RF lisinopril 10 mg tablet 10 mg PO DAILY Qty: 30 0RF doxycycline monohydrate 100 mg capsule 100 mg PO BID 10 Days Qty: 20 0RF albuterol sulfate 90 mcg/actuation HFA aerosol inhaler 1 inh inhalation QID PRN (Reason: shortness of breath or wheezing) Qty: 8.5 0RF prednisone 20 mg tablet 40 mg PO DAILY 5 Days Qty: 10 0RF
[2022-12-19 17:01] VITALS: BP 253/147; PULSE 90; RESP 20; TEMP 36.9; O2SAT 98; BMI 29.2
--- NOTE | 2022-12-19 17:04 | ECG_ITS ---
Test Reason : HYPERTENSION Blood Pressure : / mmHG Vent. Rate : 073 BPM Atrial Rate : 073 BPM P-R Int : 168 ms QRS Dur : 072 ms QT Int : 392 ms P-R-T Axes : 032 025 019 degrees QTc Int : 431 ms Normal sinus rhythm Possible Left atrial enlargement Borderline ECG When compared with ECG of 07-JUL-2020 12:33, No significant change was found Referred By: Yuli [place] Electronically Signed By:Phong Doyle
[2022-12-19 17:21] LABS: MANUAL DIFF FLAG NO
[2022-12-19 17:24] LABS: Basophils Absolute Auto 0.1 X10*3/uL (0.0-0.2); Eosinophils Absolute Auto 0.2 X10*3/uL (0.0-0.4); Eosinophils Percent Auto 1.7 % (0-4); Hematocrit 45.3 % (37.0-47.0); Hemoglobin 15.6 g/dl (12.0-16.0); Imm Gran Abs Auto 0.04 X10*3/uL (0.00-0.03); Imm Gran Pct Auto 0.4 % (0.0-0.4); Lymphocytes Absolute Auto 2.7 X10*3/uL (1.2-4.9); Lymphocytes Percent Auto 28.6 % (20-40); Mean Corpuscular HGB Conc 34.4 g/dl (31.0-35.0); Mean Corpuscular Hemoglobin 31.2 pg (27.0-33.0); Mean Corpuscular Volume 90.6 fL (80.0-98.0); Monocytes Absolute Auto 0.7 X10*3/uL (0.1-1.2); Monocytes Percent Auto 7.6 % (2-11); Neutrophils Absolute Auto 5.7 x10*3/uL (2.0-8.3); Neutrophils Percent Auto 60.7 % (45-73); Platelet Count 345 X10*3/uL (160-400); Red Cell Distribution Width 12.3 % (11.0-16.0); White Blood Count 9.4 X10*3/uL (4.8-10.8)
[2022-12-19 17:46] LABS: Alanine Aminotransferase 6 U/L (0-31); Albumin Level 4.3 g/dL (3.5-5.0); Alkaline Phosphatase 47 U/L (39-117); Anion Gap 16 (12-20); Aspartate Amino Transferase 12 U/L (5-31); Bilirubin Direct 0.1 mg/dL (0.0-0.5); Bilirubin Total 0.6 mg/dL (0.0-1.0); Blood Urea Nitrogen 6 mg/dL (9-16); Calcium 9.7 mg/dL (8.4-10.2); Carbon Dioxide 23 mmol/L (22-29); Chloride 105 mmol/L (96-108); Creatinine Clr Calc Pharmacy 118.5; Estimated Glomerular Filt Rate > 60; Glucose Random 78 mg/dL (60-115); Lipase 23 U/L (8-78); Magnesium 1.7 mg/dL (1.6-2.6); Potassium 3.8 mmol/L (3.3-5.1); Sodium 140 mmol/L (135-145)
[2022-12-19 18:04] LABS: Influenza A PCR NEGATIVE (Negative); Influenza B PCR NEGATIVE (Negative); Resp Syncy Virus RNA Qual PCR NEGATIVE (Negative); SARS COV2 PCR INHOUSE NEGATIVE (Negative)
[2022-12-19 19:28] VITALS: BP 230/142; PULSE 77; RESP 16; O2SAT 99
--- NOTE | 2022-12-19 20:03 | ED_ITS ---
HPI - General Adult General Chief complaint: General Medical Stated complaint: High blood pressure Time Seen by Provider: 12/19/22 19:49 Source: patient, family and old records reviewed History of Present Illness HPI narrative: Patient sent in from Urgent Care secondary to hypertension. Patient originally Urgent Care secondary to bronchitis type symptoms. She states she has had a cough with yellow sputum for the past 2 weeks. No fevers or chills. No significant dyspnea. She states this happens every now and then as she gets prednisone and gets bett er. She does, however, have a history of chronic hard to control hypertension. She is on labetalol twice daily. She does not typically check her blood pressure at home that she does not have a machine. She at 1 point was followed by [facility] but has not seen them in years. She does not have a primary care physician at this time. She denies chest pain, abdominal pain, weakness numbness or paresthesias. She does have a mild posterior headache. No other significant complaints. Related Data Previous Rx's Medication Instructions Recorded albuterol sulfate 90 mcg/actuation 2 inh inhalation Q4-6H PRN 07/07/20 breath activated powder inhaler shortness of breath or wheezing #1 ea azithromycin 250 mg tablet 250 mg PO DAILY 4 days #4 tabs 07/07/20 lisinopril 10 mg tablet 10 mg PO DAILY #30 tabs 07/07/20 prednisone 20 mg tablet 40 mg PO DAILY #10 tabs 07/07/20 albuterol sulfate 90 mcg/actuation 1 inh inhalation QID PRN shortness 04/22/21 aerosol inhaler of breath or wheezing #8.5 grams doxycycline monohydrate 100 mg 100 mg PO BID 10 days #20 caps 04/22/21 capsule prednisone 20 mg tablet 40 mg PO DAILY rash 5 days #10 tabs 04/22/21 azithromycin 250 mg tablet 250 mg PO DAILY 4 days #4 tabs 12/19/22 lisinopril 10 mg tablet 10 mg PO DAILY #30 tabs 12/19/22 prednisone 20 mg tablet 40 mg PO DAILY #10 tabs 12/19/22 Allergies Allergy/AdvReac Type Severity Reaction Status Date / Time No Known Allergies Allergy Verified 12/19/22 17:05 [No Known Allergies*] Review of Systems Constitutional: Comments: No fever chills or malaise Eyes: Comments: No vision change Cardiovascular: Comments: No chest pain or palpitations Respiratory: Comments: No dyspnea. Positive cough. Positive sputum Gastrointestinal: Comments: No nausea vomiting or abdominal pain Musculoskeletal: Musculoskeletal: Reports no additional musculoskeletal complaints Neurologic: Comments: No weakness numbness or paresthesias. Positive posterior headache PMFSH Past Medical History Medical History Asthma Blindness Deaf HTN (hypertension) Social History Social History Alcohol intake: never Substance Use Type: Marijuana Advance Directives: No Advance Directives Information Provided: No Physical Exam ED Vital Signs: Vital Signs - 24 hr 12/19/22 17:01 12/19/22 19:28 12/19/22 20:12 Temperature 98.4 F Pulse Rate 90 77 82 Respiratory Rate 20 16 20 Blood Pressure 253/147 H 230/142 H 228/152 H Pulse Oximetry 98 99 98 Oxygen Delivery Method Room Air Room Air Room Air 12/19/22 21:23 Temperature 98.0 F Pulse Rate 76 Respiratory Rate 19 Blood Pressure 202/136 H Pulse Oximetry 97 Oxygen Delivery Method BMI result Body Mass Index 29.2 Const Other: Awake alert. No acute distress. Vital signs stable Resp Other: Diminished bilaterally but no wheezes rales or rhonchi Cardio Other: Regular rate and rhythm without murmurs rubs or gallops GI Other: Soft nontender nondistended Skin Other: Warm pink and dry without rash Neuro Other: No focal deficits Medications Administered Discontinued Medications Generic Name Dose Route Start Last Admin Trade Name Freq PRN Reason Stop Dose Admin Azithromycin 500 mg 12/19/22 20:05 12/19/22 20:13 Azithromycin 500 Mg Tablet PO 12/19/22 20:06 500 mg ONCE ONE Administration Labetalol HCl 20 mg 12/19/22 20:02 12/19/22 20:13 Labetalol Hcl 100 Mg/20 Ml Vial IVPUSH 12/19/22 20:03 20 mg ONCE STA Administration Prednisone 60 mg 12/19/22 20:02 12/19/22 20:13 Prednisone 20 Mg Tablet PO 12/19/22 20:03 60 mg ONCE ONE Administration Medical Decision Making Medical Decision Making MDM Narrative: Patient with symptoms consistent with bronchitis or pneumonia. Will order upper respiratory lower respiratory infectious workup. She is also incidentally here with uncontrolled hypertension, symptomatic with mild headache but no obvious end-organ injury. Will to broad-based test to assess for potential end-organ effect. 20:09. Chest x-ray shows left lower lobe pneumonia as read by Radiology. White count is normal. Chemistries are normal with a normal creatinine. Will treat hypertension with labetalol IV. Goal of 10-20% overall reduction today. Will add further blood pressure medication. She is currently on labetalol. Will add lisinopril. 21:27. Patient is feeling better. Will discharge home with a final diagnosis of uncontrolled hypertension and pneumonia Lab Data 12/19/22 17:16 12/19/22 17:16 Labs: Lab Results 12/19/22 12/19/22 12/19/22 Range/Units 17:16 17:16 17:16 WBC 9.4 (4.8-10.8) X10*3/uL RBC 5.00 (4.20-5.50) X10*6/uL Hgb 15.6 (12.0-16.0) g/dl Hct 45.3 (37.0-47.0) % MCV 90.6 (80.0-98.0) fL MCH 31.2 (27.0-33.0) pg MCHC 34.4 (31.0-35.0) g/dl RDW 12.3 (11.0-16.0) % Plt Count 345 (160-400) X10*3/uL MPV 10.0 (9.4-12.3) fL Immature Gran % (Auto) 0.4 (0.0-0.4) % Neut % (Auto) 60.7 (45-73) % Lymph % (Auto) 28.6 (20-40) % [place] % (Auto) 7.6 (2-11) % Eos % (Auto) 1.7 (0-4) % Baso % (Auto) 1.0 (0-2) % Lymph # (Auto) 2.7 (1.2-4.9) X10*3/uL [place] # (Auto) 0.7 (0.1-1.2) X10*3/uL Eos # (Auto) 0.2 (0.0-0.4) X10*3/uL Baso # (Auto) 0.1 (0.0-0.2) X10*3/uL Abs Immat Gran (auto) 0.04 H (0.00-0.03) X10*3/uL Absolute Neuts (auto) 5.7 (2.0-8.3) x10*3/uL Absolute Nucleated RBC 0.000 (0.0-0.012) X10*3/uL Nucleated RBC % (auto) 0.0 (0.0-0.2) /100WBC Sodium 140 (135-145) mmol/L Potassium 3.8 (3.3-5.1) mmol/L Chloride 105 (96-108) mmol/L Carbon Dioxide 23 (22-29) mmol/L Anion Gap 16 (12-20) BUN 6 L (9-16) mg/dL Creatinine 0.66 (0.5-1.4) mg/dL Estim Creat Clear Calc 118.5 Estimated GFR > 60 Random Glucose 78 (60-115) mg/dL Calcium 9.7 (8.4-10.2) mg/dL Magnesium 1.7 (1.6-2.6) mg/dL Total Bilirubin 0.6 (0.0-1.0) mg/dL Direct Bilirubin 0.1 (0.0-0.5) mg/dL AST 12 (5-31) U/L ALT 6 (0-31) U/L Alkaline Phosphatase 47 (39-117) U/L Total Protein 7.0 (6.5-8.0) g/dL Albumin 4.3 (3.5-5.0) g/dL Lipase 23 (8-78) U/L Influenza Type A (PCR) NEGATIVE (Negative) Influenza Type B (PCR) NEGATIVE (Negative) RSV RNA Qual (PCR) NEGATIVE (Negative) SARS-CoV-2 RNA (RT-PCR) NEGATIVE (Negative) Discharge Plan Discharge Clinical Impression: Hypertension, Pneumonia Patient Disposition: Home, Self-Care Instructions: Chronic Hypertension (ED), Community Acquired Pneumonia (ED) Additional Instructions: Be sure to check your blood pressure twice daily. Recorded so he can bring it with you to your primary care provider. Prescriptions: New prednisone 20 mg tablet 40 mg PO DAILY Qty: 10 0RF azithromycin 250 mg tablet 250 mg PO DAILY 4 Days Qty: 4 0RF Rx Instructions: start on day 2 of therapy lisinopril 10 mg tablet 10 mg PO DAILY Qty: 30 0RF No Action prednisone 20 mg tablet 40 mg PO DAILY Qty: 10 0RF albuterol sulfate 90 mcg/actuation aerosol powdr breath activated 2 inh inhalation Q4-6H PRN (Reason: shortness of breath or wheezing) Qty: 1 0RF azithromycin 250 mg tablet 250 mg PO DAILY 4 Days Qty: 4 0RF lisinopril 10 mg tablet 10 mg PO DAILY Qty: 30 0RF doxycycline monohydrate 100 mg capsule 100 mg PO BID 10 Days Qty: 20 0RF albuterol sulfate 90 mcg/actuation HFA aerosol inhaler 1 inh inhalation QID PRN (Reason: shortness of breath or wheezing) Qty: 8.5 0RF prednisone 20 mg tablet 40 mg PO DAILY 5 Days Qty: 10 0RF Referrals: Eddi Mayers DO [Physician] -
[2022-12-19 20:12] VITALS: BP 228/152; PULSE 82; RESP 20; O2SAT 98
[2022-12-19] MEDS: Azithromycin 500 MG TABLET PO (20:13)
[2022-12-19] MEDS: Labetalol HCL 100 MG/20 ML VIAL 20 MG IVPUSH (20:13)
[2022-12-19] MEDS: predniSONE 20 MG TABLET 60 MG PO (20:13)
[2022-12-19 21:07] LABS: Appearance Urine Clear; Color Urine Yellow; Glucose Urine UA Negative (Negative); Leukocyte Esterase Urine Negative (Negative); Nitrite Urine Negative (Negative); Specific Gravity - Urine 1.015 (1.005-1.025); Urine Blood Negative (Negative); Urine Ketones 15 mg/dL (Negative); Urine Protein Negative (Neg-Trace)
[2022-12-19 21:23] VITALS: BP 202/136; PULSE 76; RESP 19; TEMP 36.7; O2SAT 97
[2022-12-19] MEDS: lisinopriL 10 MG TABLET PO (21:35)
== END 2022-12-19 21:53 | disposition home or self-care (01) ==
PROVIDERS: Physician Assistant Medical; Emergency Provider Emergency Medicine
DX: I10 Essential (primary) hypertension (principal); J18.9 Pneumonia, unspecified organism; Z20.822 Contact with and (suspected) exposure to COVID-19; Z20.828 Contact with and (suspected) exposure to other viral communicable diseases; F12.90 Cannabis use, unspecified, uncomplicated; Z79.899 Other long term (current) drug therapy
CPT/HCPCS: 0241U; 71046; 80048; 80076; 81003; 83690; 83735; 85025; 93005; 99284

== ENCOUNTER 2023-09-27 16:27 | Outpatient (AMB) | payer OTHER, SELFPAY ==
--- NOTE | 2023-09-27 16:31 | HO.NEPHOV_ITS ---
HPI HPI Comments History of Present Illness Details I would the privilege of seeing Nicolasa in consultation for uncontrolled hypertension. Nicolsaa has hypertension for such a long time and had compliance issues with medications in the past. She had high BMI which improved after quitting drinking. She is currently employed. She was investigated in the past rule out secondary etiologies for hypertension. Currently she takes labetalol 200 mg at 06:00 and 12:00 o'clock. Her blood pressure has been running very high. She denies any headache, double vision, chest pain, chest tightness, palpitation, shortness of breath, paroxysmal nocturnal dyspnea, orthopnea, pedal edema or urinary symptoms. She has not known to have any thyroid dysfunction, or high calcium levels. She was not tested for any sleep apnea. She has not very strict with low-sodium diet. She denies any history of retinopathy. Her renal functions have been normal. She was accompanied by her mother during this visit [facility] Medical History (Updated 09/28/23 @ 10:15 by Carlitos Ha MD) Deaf Blindness Asthma HTN (hypertension) Social History (Updated 09/27/23 @ 16:37 by Ashly Weir MA) Alcohol intake: never Patient Tobacco Use Status: Current everyday Tobacco user Substance Use Type: Marijuana Vital Signs 09/27/23 16:32 Height 5 ft 3 in Weight 164 lb 4 oz BMI 29.1 BP 200/140 H Blood Pressure Location Lt brachial Position Sitting Pulse 77 Pulse Source Pulse Oximeter Pulse Oximetry (%) 100 Oxygen Delivery Method Room Air Physical Exam Vital Signs: Last Vital Signs Pulse 77 09/27/23 16:32 BP 200/140 H 09/27/23 16:32 Pulse Ox 100 09/27/23 16:32 Oxygen Delivery Method Room Air 09/27/23 16:32 BMI result Body Mass Index 29.1 Const General: comfortable and no acute distress Orientation/consciousness: patient oriented x3 HEENT Head: Yes normocephalic Mouth: Normal oral and palatal mucosa present Neck Neck: Yes supple Resp Auscultation: clear to auscultation bilaterally Cardio Jugular venous distension: no JVD Rate: regular rate GI Palpation (GI): Soft to palpation Auscultation: normal bowel sounds General: Yes no CVA tenderness Back/Spine/Pelvis Back: no CVA tenderness Skin General skin exam: no rashes or lesions noted Neuro General: patient oriented x3 and moves all extremities Extrem General: Yes no pedal edema Assessment & Plan Assessment & Plan (1) HTN (hypertension): Code(s): I10 - Essential (primary) hypertension Qualifiers: Hypertension type: primary hypertension Qualified Code(s): I10 - Essential (primary) hypertension Plan Nicolasa has hypertension for a long time. She has been worked up for secondary etiology in the past. She has not had follow-up with any doctors for many years. She claims to be compliant with labetalol 200 mg at 06:00 and 12:00 o'clock in the afternoon. She is noncompliant with low-sodium diet. Her renal functions are normal. I have started her on spironolactone 25 mg daily in addition to her current medications. She was instructed to take spironolactone in the afternoon. I will be working her up for secondary etiology of hypertension. She may need a sleep study. I discussed all the potential complications of uncontrolled hypertension including end-organ damages, coronary artery disease, CVA, renal failure. She needs to cut back sodium in the diet. She needs to maintain good exercise. Further management is pending evolving ji a. All questions answered. She will be followed up in the office in a week time. Medications: New spironolactone 25 mg PO DAILY 30 tabs 3RF 30 days Coding Level of Care Code New Pt Level 4 (01846) Diagnoses Primary hypertension I10 Hypertension type: primary hypertension Results Reviewed Nephrology Results: Hgb 15.6 g/dl (12.0-16.0) 12/19/22 WBC 9.4 X10*3/uL (4.8-10.8) 12/19/22 Plt Count 345 X10*3/uL (160-400) 12/19/22 Sodium 140 mmol/L (135-145) 12/19/22 Potassium 3.8 mmol/L (3.3-5.1) 12/19/22 Chloride 105 mmol/L (96-108) 12/19/22 Carbon Dioxide 23 mmol/L (22-29) 12/19/22 BUN 6 mg/dL (9-16) L 12/19/22 Creatinine 0.66 mg/dL (0.5-1.4) 12/19/22 Calcium 9.7 mg/dL (8.4-10.2) 12/19/22 Urine Protein Negative mg/dL (Neg-Trace) 12/19/22
[2023-09-27 16:32] VITALS: BP 200/140; PULSE 77; O2SAT 100; BMI 29.1
== END 2023-09-27 17:06 | disposition home or self-care (01) ==
PROVIDERS: Visit Provider Internal Medicine Nephrology
DX: I10 Essential (primary) hypertension (principal)
CPT/HCPCS: 99204

== ENCOUNTER → 2023-09-27 16:27 | Outpatient (BNVA) | payer OTHER, SELFPAY | PROVIDERS: Visit Provider Internal Medicine Nephrology ==

== ENCOUNTER 2023-10-05 16:09 | Outpatient (AMB) | payer OTHER, SELFPAY ==
--- NOTE | 2023-10-05 16:17 | HO.NEPHOV ---
HPI HPI Comments History of Present Illness Details I would the privilege of seeing Nicolasa in follow up for uncontrolled hypertension. Nicolasa has hypertension for such a long time and had compliance issues with medications in the past. She had high BMI which improved after quitting drinking. She is currently employed. She was investigated in the past rule out secondary etiologies for hypertension. Currently she takes labetalol 200 mg at 06:00 and 6 PM. Her blood pressure has been running very high but better with introduction of Spironolactone. She denies any headache, double vision, chest pain, chest tightness, palpitation, shortness of breath, paroxysmal nocturnal dyspnea, orthopnea, pedal edema or urinary symptoms. She has not known to have any thyroid dysfunction, or high calcium levels. She was not tested for any sleep apnea. She has not very strict with low-sodium diet. She denies any history of retinopathy. Her renal functions have been normal. She was accompanied by her mother during this visit [facility] Medical History (Updated 09/28/23 @ 10:15 by Carlitos Ha MD) Deaf Blindness Asthma HTN (hypertension) Social History (Updated 09/27/23 @ 16:37 by Ashly Weir MA) Alcohol intake: never Patient Tobacco Use Status: Current everyday Tobacco user Substance Use Type: Marijuana Vital Signs 10/05/23 16:41 Height 5 ft 3 in Weight 164 lb 4 oz BMI 29.1 BP 160/110 H Blood Pressure Location Lt brachial Position Sitting Pulse 71 Pulse Source Pulse Oximeter Pulse Oximetry (%) 98 Oxygen Delivery Method Room Air Physical Exam Const General: comfortable and no acute distress Orientation/consciousness: patient oriented x3 HEENT Head: Yes normocephalic Mouth: Normal oral and palatal mucosa present Neck Neck: Yes supple Resp Auscultation: clear to auscultation bilaterally Cardio Jugular venous distension: no JVD Rate: regular rate GI Palpation (GI): Soft to palpation Auscultation: normal bowel sounds General: Yes no CVA tenderness Back/Spine/Pelvis Back: no CVA tenderness Skin General skin exam: no rashes or lesions noted Neuro General: patient oriented x3 and moves all extremities Extrem General: Yes no pedal edema Assessment & Plan Assessment & Plan (1) HTN (hypertension): Code(s): I10 - Essential (primary) hypertension Qualifiers: Hypertension type: primary hypertension Qualified Code(s): I10 - Essential (primary) hypertension Plan Nicolasa has hypertension for a long time. She has been worked up for secondary etiology in the past. She has not had follow-up with any doctors for many years. I increased her labetalol to 400 mg bid. She is noncompliant with low-sodium diet. Her renal functions are normal. I also increased her spironolactone to 50 mg daily in addition to her current medications. She was instructed to take spironolactone in the afternoon. I will be working her up for secondary etiology of hypertension. She may need a sleep study. I discussed all the potential complications of uncontrolled hypertension including end-organ damages, coronary artery disease, CVA, renal failure. She needs to cut back sodium in the diet. She needs to maintain good exercise. Further management is pending evolving data. All questions answered. Orders: Orders Creatinine Today I10 - Essential (primary) hypertension Blood Urea Nitrogen Today I10 - Essential (primary) hypertension Electrolytes Today I10 - Essential (primary) hypertension Coding Level of Care Code Est Pt Level 4 (04578) Diagnoses Primary hypertension I10 Hypertension type: primary hypertension Results Reviewed Nephrology Results: Hgb 15.6 g/dl (12.0-16.0) 12/19/22 WBC 9.4 X10*3/uL (4.8-10.8) 12/19/22 Plt Count 345 X10*3/uL (160-400) 12/19/22 Sodium 140 mmol/L (135-145) 12/19/22 Potassium 3.8 mmol/L (3.3-5.1) 12/19/22 Chloride 105 mmol/L (96-108) 12/19/22 Carbon Dioxide 23 mmol/L (22-29) 12/19/22 BUN 6 mg/dL (9-16) L 12/19/22 Creatinine 0.66 mg/dL (0.5-1.4) 12/19/22 Calcium 9.7 mg/dL (8.4-10.2) 12/19/22 Urine Protein Negative mg/dL (Neg-Trace) 12/19/22
[2023-10-05 16:41] VITALS: BP 160/110; PULSE 71; O2SAT 98; BMI 29.1
== END 2023-10-05 16:54 | disposition home or self-care (01) ==
PROVIDERS: Visit Provider Internal Medicine Nephrology
DX: I10 Essential (primary) hypertension (principal)
CPT/HCPCS: 99214

== ENCOUNTER → 2023-10-05 16:09 | Outpatient (BNVA) | payer OTHER, SELFPAY | PROVIDERS: Visit Provider Internal Medicine Nephrology ==

== ENCOUNTER 2023-10-13 09:47 | Outpatient (REF) | payer OTHER, SELFPAY ==
[2023-10-13 11:34] LABS: Anion Gap 10 (12-20); Blood Urea Nitrogen 13 mg/dL (9-16); Carbon Dioxide 28 mmol/L (22-29); Chloride 107 mmol/L (96-108); Estimated Glomerular Filt Rate > 60; Sodium 141 mmol/L (135-145)
== END 2023-10-13 09:48 | disposition home or self-care (01) ==
LOC: HO.LAB 09:47
PROVIDERS: Visit Provider Internal Medicine Nephrology
DX: I10 Essential (primary) hypertension (principal)
CPT/HCPCS: 36415; 80051; 82565; 84520

== ENCOUNTER 2023-10-17 15:51 | Outpatient (AMB) | payer OTHER, SELFPAY ==
[2023-10-17 15:52] VITALS: BP 170/100; PULSE 93; O2SAT 99; BMI 28.6
--- NOTE | 2023-10-17 15:52 | HO.NEPHOV ---
HPI HPI Comments History of Present Illness Details I would the privilege of seeing Nicolasa in follow up for uncontrolled hypertension. Nicolasa has hypertension for such a long time and had compliance issues with medications in the past. She had high BMI which improved after quitting drinking. She is currently employed. She was investigated in the past rule out secondary etiologies for hypertension. Currently she takes labetalol 200 mg at 06:00 and 6 PM. Her blood pressure has been running very high but better with introduction of Spironolactone. She denies any headache, double vision, chest pain, chest tightness, palpitation, shortness of breath, paroxysmal nocturnal dyspnea, orthopnea, pedal edema or urinary symptoms. She has not known to have any thyroid dysfunction, or high calcium levels. She was not tested for any sleep apnea. She has not very strict with low-sodium diet. She denies any history of retinopathy. Her renal functions have been normal. She was accompanied by her mother during this visit [facility] Medical History (Updated 09/28/23 @ 10:15 by Carlitos Ha MD) Deaf Blindness Asthma HTN (hypertension) Social History Alcohol intake: never Patient Tobacco Use Status: Current everyday Tobacco user Substance Use Type: Marijuana Vital Signs 10/17/23 15:52 Height 5 ft 3 in Weight 161 lb 4 oz BMI 28.6 BP 170/100 H Blood Pressure Location Rt brachial Position Sitting Pulse 93 Pulse Source Pulse Oximeter Pulse Oximetry (%) 99 Oxygen Delivery Method Room Air Physical Exam Vital Signs: Last Vital Signs Pulse 93 10/17/23 15:52 BP 210/140 H 10/17/23 15:52 Pulse Ox 99 10/17/23 15:52 Oxygen Delivery Method Room Air 10/17/23 15:52 BMI result Body Mass Index 28.6 Const General: comfortable and no acute distress Orientation/consciousness: patient oriented x3 HEENT Head: Yes normocephalic Mouth: Normal oral and palatal mucosa present Neck Neck: Yes supple Resp Auscultation: clear to auscultation bilaterally Cardio Jugular venous distension: no JVD Rate: regular rate GI Palpation (GI): Soft to palpation Auscultation: normal bowel sounds General: Yes no CVA tenderness Back/Spine/Pelvis Back: no CVA tenderness Skin General skin exam: no rashes or lesions noted Neuro General: patient oriented x3 and moves all extremities Extrem General: Yes no pedal edema Assessment & Plan Assessment & Plan (1) HTN (hypertension): Code(s): I10 - Essential (primary) hypertension Qualifiers: Hypertension type: primary hypertension Qualified Code(s): I10 - Essential (primary) hypertension Plan Nicolasa has hypertension for a long time. She has been worked up for secondary etiology in the past. She has not had follow-up with any doctors for many years. She can continue on labetalol 400 mg bid. She is noncompliant with low-sodium diet. Her renal functions are normal. I also increased her spironolactone to 100 mg daily in addition to her current medications. She was instructed to take spironolactone in the afternoon. I will be working her up for secondary etiology of hypertension. She may need a sleep study. I discussed all the potential complications of uncontrolled hypertension including end-organ damages, coronary artery disease, CVA, renal failure. She needs to cut back sodium in the diet. She needs to maintain good exercise. Further management is pending evolving data. All questions answered. Medications: Changed From spironolactone 25 mg PO DAILY 30 days 30 tabs 3RF To spironolactone 100 mg PO DAILY 30 tabs 3RF 30 days Coding Level of Care Code Est Pt Level 3 (25580) Diagnoses Primary hypertension I10 Hypertension type: primary hypertension Results Reviewed Nephrology Results: Hgb 15.6 g/dl (12.0-16.0) 12/19/22 WBC 9.4 X10*3/uL (4.8-10.8) 12/19/22 Plt Count 345 X10*3/uL (160-400) 12/19/22 Sodium 141 mmol/L (135-145) 10/13/23 Potassium 4.0 mmol/L (3.3-5.1) 10/13/23 Chloride 107 mmol/L (96-108) 10/13/23 Carbon Dioxide 28 mmol/L (22-29) 10/13/23 BUN 13 mg/dL (9-16) 10/13/23 Creatinine 0.81 mg/dL (0.5-1.4) 10/13/23 Calcium 9.7 mg/dL (8.4-10.2) 12/19/22 Urine Protein Negative mg/dL (Neg-Trace) 12/19/22
== END 2023-10-17 16:27 | disposition home or self-care (01) ==
PROVIDERS: Visit Provider Internal Medicine Nephrology
DX: I10 Essential (primary) hypertension (principal)
CPT/HCPCS: 99213

== ENCOUNTER → 2023-10-17 15:51 | Outpatient (BNVA) | payer OTHER, SELFPAY | PROVIDERS: Visit Provider Internal Medicine Nephrology ==

== ENCOUNTER 2023-10-31 16:06 | Outpatient (AMB) | payer OTHER, SELFPAY ==
[2023-10-31 16:09] VITALS: BP 150/100; PULSE 87; O2SAT 99; BMI 28.4
--- NOTE | 2023-10-31 16:09 | HO.NEPHOV ---
HPI HPI Comments History of Present Illness Details I had the privilege of seeing Nicolasa in follow up for uncontrolled hypertension. Nicolasa has hypertension for such a long time and had compliance issues with medications in the past. She had high BMI which improved after quitting drinking. She is currently employed. She was investigated in the past rule out secondary etiologies for hypertension. Currently she takes labetalol 400 mg at 06:00 and 6 PM and Spironolactone 100 mg daily. Her blood pressure has been running very high but better with introduction of Spironolactone. She denies any headache, double vision, chest pain, chest tightness, palpitation, shortness of breath, paroxysmal nocturnal dyspnea, orthopnea, pedal edema or urinary symptoms. She has not known to have any thyroid dysfunction, or high calcium levels. She was not tested for any sleep apnea. She has not very strict with low-sodium diet. She denies any history of retinopathy. Her renal functions have been normal. She was accompanied by her mother during this visit [facility] Medical History (Updated 09/28/23 @ 10:15 by Carlitos Ha MD) Deaf Blindness Asthma HTN (hypertension) Social History Alcohol intake: never Patient Tobacco Use Status: Current everyday Tobacco user Substance Use Type: Marijuana Vital Signs 10/31/23 16:09 Height 5 ft 3 in Weight 160 lb 4 oz BMI 28.4 BP 150/100 H Blood Pressure Location Lt brachial Position Sitting Pulse 87 Pulse Source Pulse Oximeter Pulse Oximetry (%) 99 Oxygen Delivery Method Room Air Physical Exam Vital Signs: Last Vital Signs Pulse 87 10/31/23 16:09 BP 150/100 H 10/31/23 16:09 Pulse Ox 99 10/31/23 16:09 Oxygen Delivery Method Room Air 10/31/23 16:09 BMI result Body Mass Index 28.4 Const General: comfortable and no acute distress Orientation/consciousness: patient oriented x3 HEENT Head: Yes normocephalic Mouth: Normal oral and palatal mucosa present Eyes EOM: EOMs intact bilaterally Neck Neck: Yes supple Resp Auscultation: clear to auscultation bilaterally Cardio Jugular venous distension: no JVD Rate: regular rate GI Palpation (GI): Soft to palpation Auscultation: normal bowel sounds General: Yes no CVA tenderness Back/Spine/Pelvis Back: no CVA tenderness Skin General skin exam: no rashes or lesions noted Neuro General: patient oriented x3 and moves all extremities Extrem General: Yes no pedal edema Assessment & Plan Assessment & Plan (1) HTN (hypertension): Code(s): I10 - Essential (primary) hypertension Qualifiers: Hypertension type: primary hypertension Qualified Code(s): I10 - Essential (primary) hypertension Plan Nicolasa has hypertension for a long time. She has been worked up for secondary etiology in the past. She has not had follow-up with any doctors for many years. She can continue on labetalol 400 mg bid along with spironolactone 100 mg daily . Her renal functions are normal. She was instructed to take spironolactone in the afternoon. I have ordered W/U again to R/O secondary etiology of hypertension. She may need a sleep study. I discussed all the potential complications of uncontrolled hypertension including end-organ damages, coronary artery disease, CVA, renal failure. She needs to cut back sodium in the diet. She needs to maintain good exercise. Further management is pending evolving data. All questions answered. Orders: Orders Creatinine 10/31/23 I10 - Essential (primary) hypertension Electrolytes 10/31/23 I10 - Essential (primary) hypertension Metanephrines, Plasma 10/31/23 I10 - Essential (primary) hypertension TSH reflex Free T4 10/31/23 I10 - Essential (primary) hypertension Cortisol Random 10/31/23 I10 - Essential (primary) hypertension Blood Urea Nitrogen 10/31/23 I10 - Essential (primary) hypertension Renin 10/31/23 I10 - Essential (primary) hypertension Aldosterone 10/31/23 I10 - Essential (primary) hypertension Medications: New nifedipine ER 30 mg PO DAILY 30 tabs 4RF Changed From labetalol 400 mg PO BID To labetalol 400 mg (2 x 200 mg) PO BID 360 tabs 3RF 90 days Coding Level of Care Code Est Pt Level 4 (76036) Diagnoses Primary hypertension I10 Hypertension type: primary hypertension Results Reviewed Nephrology Results: Hgb 15.6 g/dl (12.0-16.0) 12/19/22 WBC 9.4 X10*3/uL (4.8-10.8) 12/19/22 Plt Count 345 X10*3/uL (160-400) 12/19/22 Sodium 141 mmol/L (135-145) 10/13/23 Potassium 4.0 mmol/L (3.3-5.1) 10/13/23 Chloride 107 mmol/L (96-108) 10/13/23 Carbon Dioxide 28 mmol/L (22-29) 10/13/23 BUN 13 mg/dL (9-16) 10/13/23 Creatinine 0.81 mg/dL (0.5-1.4) 10/13/23 Calcium 9.7 mg/dL (8.4-10.2) 12/19/22 Urine Protein Negative mg/dL (Neg-Trace) 12/19/22
== END 2023-10-31 16:31 | disposition home or self-care (01) ==
PROVIDERS: Visit Provider Internal Medicine Nephrology
DX: I10 Essential (primary) hypertension (principal)
CPT/HCPCS: 99214

== ENCOUNTER → 2023-10-31 16:06 | Outpatient (BNVA) | payer OTHER, SELFPAY | PROVIDERS: Visit Provider Internal Medicine Nephrology ==

== ENCOUNTER 2023-12-01 10:24 | Outpatient (REF) | payer OTHER, SELFPAY ==
[2023-12-01 11:06] LABS: Anion Gap 11 (12-20); Blood Urea Nitrogen 16 mg/dL (9-16); Carbon Dioxide 25 mmol/L (22-29); Chloride 109 mmol/L (96-108); Estimated Glomerular Filt Rate > 60; Potassium 4.2 mmol/L (3.3-5.1); Sodium 141 mmol/L (135-145)
[2023-12-01 11:21] LABS: Cortisol Random 7.8 ug/dL
[2023-12-01 11:22] LABS: TSH reflex Free T4 0.42 uIU/mL (0.32-4.0)
[2023-12-06 17:28] LABS: Renin 2.17 ng/mL/h (0.25-5.82)
[2023-12-06 22:54] LABS: Metanephrine, Free 62 pg/mL (<=57); Normetanephrines, Free 83 pg/mL (<=148); Total Metanephrine, Free 145 pg/mL (<=205)
== END 2023-12-01 10:25 | disposition home or self-care (01) ==
LOC: HO.LAB 10:24
PROVIDERS: Visit Provider Internal Medicine Nephrology
DX: I10 Essential (primary) hypertension (principal)
CPT/HCPCS: 36415; 80051; 82088; 82533; 82565; 83835; 84244; 84443; 84520

== ENCOUNTER 2023-12-05 15:38 | Outpatient (AMB) | payer OTHER, SELFPAY ==
[2023-12-05 15:50] VITALS: BP 160/100; PULSE 81; O2SAT 99; BMI 28.2
--- NOTE | 2023-12-05 15:50 | HO.NEPHOV ---
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 Nicolasa has hypertension for such a long time and had compliance issues with medications in the past. She had high BMI which improved after quitting drinking. She is currently employed. She was investigated in the past rule out secondary etiologies for hypertension. Currently she takes labetalol 400 mg at 06:00 and 6 PM and Spironolactone 100 mg daily as well as Nifedipine 30 mg daily. She denies any headache, double vision, chest pain, chest tightness, palpitation, shortness of breath, paroxysmal nocturnal dyspnea, orthopnea, pedal edema or urinary symptoms. She has not known to have any thyroid dysfunction, or high calcium levels. She was not tested for any sleep apnea. She has not very strict with low-sodium diet. She denies any history of retinopathy. Her renal functions have been normal. She was accompanied by her mother during this visit [facility] Medical History (Updated 09/28/23 @ 10:15 by Carlitos Ha MD) Deaf Blindness Asthma HTN (hypertension) Social History Alcohol intake: never Patient Tobacco Use Status: Current everyday Tobacco user Substance Use Type: Marijuana Physical Exam Vital Signs: Last Vital Signs Pulse 81 12/05/23 15:50 BP 180/118 H 12/05/23 15:50 Pulse Ox 99 12/05/23 15:50 Oxygen Delivery Method Room Air 12/05/23 15:50 BMI result Body Mass Index 28.2 Const General: comfortable and no acute distress Orientation/consciousness: patient oriented x3 HEENT Head: Yes normocephalic Mouth: Normal oral and palatal mucosa present Neck Neck: Yes supple Resp Auscultation: clear to auscultation bilaterally Cardio Jugular venous distension: no JVD Rate: regular rate Heart sounds: Murmur heart sound present GI Palpation (GI): Soft to palpation Auscultation: normal bowel sounds General: Yes no CVA tenderness Back/Spine/Pelvis Back: no CVA tenderness Skin General skin exam: no rashes or lesions noted Neuro General: patient oriented x3 and moves all extremities Extrem General: Yes no pedal edema Results Reviewed Nephrology Results: Hgb 15.6 g/dl (12.0-16.0) 12/19/22 WBC 9.4 X10*3/uL (4.8-10.8) 12/19/22 Plt Count 345 X10*3/uL (160-400) 12/19/22 Sodium 141 mmol/L (135-145) 12/01/23 Potassium 4.2 mmol/L (3.3-5.1) 12/01/23 Chloride 109 mmol/L (96-108) H 12/01/23 Carbon Dioxide 25 mmol/L (22-29) 12/01/23 BUN 16 mg/dL (9-16) 12/01/23 Creatinine 0.75 mg/dL (0.5-1.4) 12/01/23 Calcium 9.7 mg/dL (8.4-10.2) 12/19/22 Urine Protein Negative mg/dL (Neg-Trace) 12/19/22 Assessment & Plan Assessment & Plan (1) HTN (hypertension): Code(s): I10 - Essential (primary) hypertension Category: Medical Qualifiers: Hypertension type: primary hypertension Qualified Code(s): I10 - Essential (primary) hypertension Plan Nicolasa has hypertension for a long time. She has been worked up for secondary etiology in the past. She has not had follow-up with any doctors for many years. She can continue on labetalol 400 mg bid along with spironolactone 100 mg daily . I increased her Nifedipine to 60 mg daily. I ordered Doppler renal arteries. Her renal functions are normal. Some of the W/U again to R/O secondary etiology of hypertension is pending. She may need a sleep study. I discussed all the potential complications of uncontrolled hypertension including end-organ damages, coronary artery disease, CVA, renal failure. She needs to cut back sodium in the diet. She needs to maintain good exercise. Further management is pending evolving data. All questions answered. Orders: Orders US renal BI Today I10 - Essential (primary) hypertension US renal doppler Today I10 - Essential (primary) hypertension Medications: Changed From nifedipine ER 30 mg PO DAILY 30 tabs 4RF To nifedipine ER 60 mg PO DAILY 30 days 30 tabs 4RF Coding Level of Care Code Est Pt Level 4 (45432) Diagnoses Primary hypertension I10 Hypertension type: primary hypertension
== END 2023-12-05 16:32 | disposition home or self-care (01) ==
PROVIDERS: Visit Provider Internal Medicine Nephrology
DX: I10 Essential (primary) hypertension (principal)
CPT/HCPCS: 99214

== ENCOUNTER → 2023-12-05 15:38 | Outpatient (BNVA) | payer OTHER, SELFPAY | PROVIDERS: Visit Provider Internal Medicine Nephrology ==

== ENCOUNTER 2024-01-11 09:44 | Outpatient (REF) | payer OTHER, SELFPAY ==
--- NOTE | ~2024-01-11 | US_ITS ---
EXAMINATION: ULTRASOUND RENAL WITH DOPPLER CLINICAL INFORMATION: Hypertension. COMPARISON: 07/08/2014. TECHNIQUE: Real-time grayscale, color Doppler, and duplex Doppler evaluation of the kidneys and renal vasculature was performed. FINDINGS: RENAL MEASUREMENTS: Right: 12.2 x 4.5 x 6.0 cm (Sag x AP x TV) Left: 11.1 x 4.7 x 5.3 cm (Sag x AP x TV) The renal parenchyma appears normal. No hydronephrosis or nephrolithiasis. DOPPLER INTERROGATION: AORTA: Mid aorta: 91 cm/sec RIGHT MAIN RENAL ARTERY: Proximal: 149 cm/sec Mid: 136 cm/sec Distal: 114 cm/sec LEFT MAIN RENAL ARTERY: Proximal: 139 cm/sec Mid: 205 cm/sec Distal: 192 cm/sec RENAL-AORTIC RATIO (RAR): Right: 1.6 Left: 2.3 SEGMENTAL RESISTIVE INDICES: Right: 0.55-0.62 Left: 0.56-0.59 RENAL VEINS: Right: Patent with normal waveform. Left: Patent with normal waveform. US/US renal BI IMPRESSION: Newly elevated velocity in the mid left renal artery compared to the prior study. 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 In this location and in a patient of this age, leading diagnosis would be fibromuscular dysplasia. Recommend CTA of the abdomen and pelvis with without and with intravenous contrast.
--- NOTE | ~2024-01-11 | US_ITS ---
EXAMINATION: ULTRASOUND RENAL WITH DOPPLER CLINICAL INFORMATION: Hypertension. COMPARISON: 07/08/2014. TECHNIQUE: Real-time grayscale, color Doppler, and duplex Doppler evaluation of the kidneys and renal vasculature was performed. FINDINGS: RENAL MEASUREMENTS: Right: 12.2 x 4.5 x 6.0 cm (Sag x AP x TV) Left: 11.1 x 4.7 x 5.3 cm (Sag x AP x TV) The renal parenchyma appears normal. No hydronephrosis or nephrolithiasis. DOPPLER INTERROGATION: AORTA: Mid aorta: 91 cm/sec RIGHT MAIN RENAL ARTERY: Proximal: 149 cm/sec Mid: 136 cm/sec Distal: 114 cm/sec LEFT MAIN RENAL ARTERY: Proximal: 139 cm/sec Mid: 205 cm/sec Distal: 192 cm/sec RENAL-AORTIC RATIO (RAR): Right: 1.6 Left: 2.3 SEGMENTAL RESISTIVE INDICES: Right: 0.55-0.62 Left: 0.56-0.59 RENAL VEINS: Right: Patent with normal waveform. Left: Patent with normal waveform. US/US renal doppler IMPRESSION: Newly elevated velocity in the mid left renal artery compared to the prior study. 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 In this location and in a patient of this age, leading diagnosis would be fibromuscular dysplasia. Recommend CTA of the abdomen and pelvis with without and with intravenous contrast.
== END 2024-01-11 09:45 | disposition home or self-care (01) ==
LOC: HO.US 09:44
PROVIDERS: Visit Provider Internal Medicine Nephrology
DX: I10 Essential (primary) hypertension (principal)
CPT/HCPCS: 76775; 93975

== ENCOUNTER 2024-01-23 14:24 | Outpatient (AMB) | payer OTHER, SELFPAY ==
[2024-01-23 14:59] VITALS: BP 156/100; PULSE 69; O2SAT 99; BMI 27.6
--- NOTE | 2024-01-23 14:59 | HO.NEPHOV ---
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 Nicolasa has hypertension for such a long time and had compliance issues with medications in the past. She had high BMI which improved after quitting drinking. She is currently employed. She was investigated in the past rule out secondary etiologies for hypertension. Currently she takes labetalol 400 mg at 06:00 and 6 PM and Spironolactone 100 mg daily as well as Nifedipine 30 mg daily. She denies any headache, double vision, chest pain, chest tightness, palpitation, shortness of breath, paroxysmal nocturnal dyspnea, orthopnea, pedal edema or urinary symptoms. She has not known to have any thyroid dysfunction, or high calcium levels. She was not tested for any sleep apnea. She has not very strict with low-sodium diet. She denies any history of retinopathy. Her renal functions have been normal. She was accompanied by her mother during this visit [facility] Medical History (Updated 09/28/23 @ 10:15 by Carlitos Ha MD) Deaf Blindness Asthma HTN (hypertension) Social History Alcohol intake: never Patient Tobacco Use Status: Current everyday Tobacco user Substance Use Type: Marijuana Physical Exam Vital Signs: Last Vital Signs Pulse 69 01/23/24 14:59 BP 156/110 H 01/23/24 14:59 Pulse Ox 99 01/23/24 14:59 Oxygen Delivery Method Room Air 01/23/24 14:59 BMI result Body Mass Index 27.6 Const General: comfortable and no acute distress Orientation/consciousness: patient oriented x3 HEENT Head: Yes normocephalic Mouth: Normal oral and palatal mucosa present Eyes EOM: EOMs intact bilaterally Neck Neck: Yes supple Resp Auscultation: clear to auscultation bilaterally Cardio Jugular venous distension: no JVD Rate: regular rate GI Palpation (GI): Soft to palpation Auscultation: normal bowel sounds General: Yes no CVA tenderness Back/Spine/Pelvis Back: no CVA tenderness Skin General skin exam: no rashes or lesions noted Neuro General: patient oriented x3 and moves all extremities Extrem General: Yes no pedal edema Results Reviewed Nephrology Results: Sodium 141 mmol/L (135-145) 12/01/23 Potassium 4.2 mmol/L (3.3-5.1) 12/01/23 Chloride 109 mmol/L (96-108) H 12/01/23 Carbon Dioxide 25 mmol/L (22-29) 12/01/23 BUN 16 mg/dL (9-16) 12/01/23 Creatinine 0.75 mg/dL (0.5-1.4) 12/01/23 Renal US 01/11/24 Assessment & Plan Assessment & Plan (1) HTN (hypertension): Code(s): I10 - Essential (primary) hypertension Category: Medical Qualifiers: Hypertension type: primary hypertension Qualified Code(s): I10 - Essential (primary) hypertension Plan Nicolasa has hypertension for a long time. She has been worked up for secondary etiology in the past. She has not had follow-up with any doctors for many years. She can continue on labetalol 400 mg bid along with spironolactone 100 mg daily . Doppler of renal arteries showed newly elevated velocity in the mid left renal artery compared to the prior study. 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 In this location and in a patient of this age, leading diagnosis would be fibromuscular dysplasia. She may need a CTA of the abdomen and pelvis with without and with intravenous contrast. Her renal functions are normal. W/U again to R/O secondary etiology of hypertension is negative otherwise ( so far). I increased her Nifedipine to 60 mg bid. I shall start her on ARB if her BP is not coming down. She may need a sleep study. I discussed all the potential complications of uncontrolled hypertension including end-organ damages, coronary artery disease, CVA, renal failure. She needs to cut back sodium in the diet. She needs to maintain good exercise. Further management is pending evolving data. All questions answered. Medications: Changed From nifedipine ER 60 mg PO DAILY 30 days 30 tabs 4RF To nifedipine ER 120 mg (2 x 60 mg) PO DAILY 30 days 60 tabs 4RF Coding Level of Care Code Est Pt Level 4 (16874) Diagnoses Primary hypertension I10 Hypertension type: primary hypertension
== END 2024-01-23 15:33 | disposition home or self-care (01) ==
PROVIDERS: Visit Provider Internal Medicine Nephrology
DX: I10 Essential (primary) hypertension (principal)
CPT/HCPCS: 99214

== ENCOUNTER → 2024-01-23 14:24 | Outpatient (BNVA) | payer OTHER, SELFPAY | PROVIDERS: Visit Provider Internal Medicine Nephrology ==

== ENCOUNTER 2024-03-05 15:57 | Outpatient (AMB) | payer OTHER, SELFPAY ==
--- NOTE | 2024-03-05 16:03 | HO.NEPHOV_ITS ---
Vital Signs 03/05/24 16:04 Height 5 ft 3 in Weight 157 lb 4 oz BMI 27.9 BP 140/90 H Blood Pressure Location Lt brachial Position Sitting Pulse 79 Pulse Source Pulse Oximeter Pulse Oximetry (%) 98 Oxygen Delivery Method Room Air Intake Visit Reasons: 6 wk fu w/no labs/ LVM Accompanied by: Mother Allergies No Known Allergies [No Known Allergies*] Allergy (Verified 03/05/24 16:06) HPI Comments Details: I had the privilege of seeing Nicolasa in follow up for uncontrolled hypertension. Nicolasa has hypertension for such a long time and had compliance issues with medications in the past. She had high BMI which improved after quitting drinking. She is currently employed. She was investigated in the past rule out secondary etiologies for hypertension. Currently she takes labetalol 400 mg at 06:00 and 6 PM and Spironolactone 100 mg daily as well as Nifedipine 120 mg daily. She denies any headache, double vision, chest pain, chest tightness, palpitation, shortness of breath, paroxysmal nocturnal dyspnea, orthopnea, pedal edema or urinary symptoms. She has not known to have any thyroid dysfunction, or high calcium levels. She was not tested for any sleep apnea. She has not very strict with low-sodium diet. She denies any history of retinopathy. Her renal functions have been normal. She was accompanied by her mother during this visit [facility] Medical History (Updated 09/28/23 @ 10:15 by Carlitos Ha MD) Deaf Blindness Asthma HTN (hypertension) Social History Alcohol intake: never Patient Tobacco Use Status: Current everyday Tobacco user Substance Use Type: Marijuana Physical Exam Vital Signs: Last Vital Signs Pulse 79 03/05/24 16:04 BP 160/110 H 03/05/24 16:04 Pulse Ox 98 03/05/24 16:04 Oxygen Delivery Method Room Air 03/05/24 16:04 BMI result Body Mass Index 27.9 Const General: comfortable and no acute distress Orientation/consciousness: patient oriented x3 HEENT Head: Yes normocephalic Mouth: Normal oral and palatal mucosa present Eyes EOM: EOMs intact bilaterally Neck Neck: Yes supple Resp Auscultation: clear to auscultation bilaterally Cardio Jugular venous distension: no JVD Rate: regular rate GI Palpation (GI): Soft to palpation Auscultation: normal bowel sounds General: Yes no CVA tenderness Back/Spine/Pelvis Back: no CVA tenderness Skin General skin exam: no rashes or lesions noted Neuro General: patient oriented x3 and moves all extremities Extrem General: Yes no pedal edema Results Reviewed Nephrology Results: Sodium 141 mmol/L (135-145) 12/01/23 Potassium 4.2 mmol/L (3.3-5.1) 12/01/23 Chloride 109 mmol/L (96-108) H 12/01/23 Carbon Dioxide 25 mmol/L (22-29) 12/01/23 BUN 16 mg/dL (9-16) 12/01/23 Creatinine 0.75 mg/dL (0.5-1.4) 12/01/23 Renal US 01/11/24 Assessment & Plan Assessment & Plan (1) HTN (hypertension): Code(s): I10 - Essential (primary) hypertension Category: Medical Qualifiers: Hypertension type: primary hypertension Qualified Code(s): I10 - Essential (primary) hypertension Plan Nicolasa has hypertension for a long time. She has been worked up for secondary etiology in the past. She has not had follow-up with any doctors for many years. She can continue on labetalol 400 mg bid along with spironolactone 100 mg daily . Doppler of renal arteries showed newly elevated velocity in the mid left renal artery compared to the prior study. 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 In this location and in a patient of this age, leading diagnosis would be fibromuscular dysplasia. She may need a CTA of the abdomen and pelvis with without and with intravenous contrast. Her renal functions are normal. W/U again to R/O secondary etiology of hypertension is negative otherwise ( so far). I shall start her on ARB if her BP is not coming down. She may need a sleep study as well as a renal angio. I discussed all the potential complications of uncontrolled hypertension including end-organ damages, coronary artery disease, CVA, renal failure. She needs to cut back sodium in the diet. She needs to maintain good exercise. Further management is pending evolving data. All questions answered. Coding Level of Care Code Est Pt Level 4 (64604) Diagnoses Primary hypertension I10 Hypertension type: primary hypertension
[2024-03-05 16:04] VITALS: BP 140/90; PULSE 79; O2SAT 98; BMI 27.9
== END 2024-03-05 16:24 | disposition home or self-care (01) ==
PROVIDERS: Visit Provider Internal Medicine Nephrology
DX: I10 Essential (primary) hypertension (principal)
CPT/HCPCS: 99214

== ENCOUNTER → 2024-03-05 15:57 | Outpatient (BNVA) | payer OTHER, SELFPAY | PROVIDERS: Visit Provider Internal Medicine Nephrology ==

== ENCOUNTER 2024-06-04 15:26 | Outpatient (AMB) | payer OTHER, SELFPAY ==
--- NOTE | 2024-06-04 15:47 | HO.NEPHOV_ITS ---
Vital Signs 06/04/24 15:48 Height 5 ft 3 in Weight 157 lb BMI 27.8 BP 134/90 H Blood Pressure Location Lt brachial Position Sitting Pulse 65 Pulse Source Pulse Oximeter Pulse Oximetry (%) 99 Oxygen Delivery Method Room Air Intake Visit Reasons: Hypertension-LV Golf Range Attendant Required: No Accompanied by: Mother Allergies No Known Allergies [No Known Allergies*] Allergy (Verified 06/04/24 15:48) HPI Comments Details: Nicolasa was seen in follow up for uncontrolled hypertension. Nicolasa has hypertension for such a long time and had compliance issues with medications in the past. She had high BMI which improved after quitting drinking. She is currently employed. She was investigated in the past rule out secondary etiologies for hypertension. Currently she takes labetalol 400 mg at 06:00 and 6 PM and Spironolactone 100 mg daily as well as Nifedipine 120 mg daily. She denies any headache, double vision, chest pain, chest tightness, palpitation, shortness of breath, paroxysmal nocturnal dyspnea, orthopnea, pedal edema or urinary symptoms. She has not known to have any thyroid dysfunction, or high calcium levels. She was not tested for any sleep apnea. She has not very strict with low-sodium diet. She denies any history of retinopathy. Her renal functions have been normal. She was accompanied by her mother during this visit [facility] Medical History (Updated 09/28/23 @ 10:15 by Carlitos Ha MD) Deaf Blindness Asthma HTN (hypertension) Social History Alcohol intake: never Patient Tobacco Use Status: Current everyday Tobacco user Substance Use Type: Marijuana Review of Systems Const All systems reviewed & are unremarkable except as noted in HPI and below Physical Exam Vital Signs: Last Vital Signs Pulse 65 06/04/24 15:48 BP 134/90 H 06/04/24 15:48 Pulse Ox 99 06/04/24 15:48 Oxygen Delivery Method Room Air 06/04/24 15:48 BMI result Body Mass Index 27.8 Const General: comfortable and no acute distress Orientation/consciousness: patient oriented x3 HEENT Head: Yes normocephalic Mouth: Normal oral and palatal mucosa present Eyes EOM: EOMs intact bilaterally Neck Neck: Yes supple Resp Auscultation: clear to auscultation bilaterally Cardio Jugular venous distension: no JVD Rate: regular rate GI Palpation (GI): Soft to palpation Auscultation: normal bowel sounds General: Yes no CVA tenderness Back/Spine/Pelvis Back: no CVA tenderness Skin General skin exam: no rashes or lesions noted Neuro General: patient oriented x3 and moves all extremities Extrem General: Yes no pedal edema Assessment & Plan Assessment & Plan (1) HTN (hypertension): Code(s): I10 - Essential (primary) hypertension Category: Medical Qualifiers: Hypertension type: primary hypertension Qualified Code(s): I10 - Essential (primary) hypertension Plan Nicolasa has hypertension for a long time. She has been worked up for secondary etiology in the past. She has not had follow-up with any doctors for many years prior to seeing me again recently. She can continue on labetalol 400 mg bid along with spironolactone 100 mg daily . Doppler of renal arteries showed newly elevated velocity in the mid left renal artery compared to the prior study. This is consistent with a moderate 60% stenosis. In this location and in a patient of this age, leading diagnosis would be fibromuscular dysplasia. She may need a CTA of the abdomen and pelvis with without and with intravenous contrast. Her renal functions are normal. W/U again to R/O secondary etiology of hypertension is negative otherwise ( so far). I shall start her on ARB if her BP is not coming down. She may need a sleep study as well as a renal angio. I discussed all the potential complications of uncontrolled hypertension including end-organ damages, coronary artery disease, CVA, renal failure. She needs to cut back sodium in the diet. She needs to maintain good exercise. All questions answered Orders: Orders Blood Urea Nitrogen 06/04/24 I10 - Essential (primary) hypertension Creatinine 06/04/24 I10 - Essential (primary) hypertension Electrolytes 06/04/24 I10 - Essential (primary) hypertension Medications: Refilled spironolactone 100 mg PO DAILY 90 tabs 3RF Coding Level of Care Code Est Pt Level 4 (55174) Diagnoses Primary hypertension I10 Hypertension type: primary hypertension
[2024-06-04 15:48] VITALS: BP 134/90; PULSE 65; O2SAT 99; BMI 27.8
== END 2024-06-04 16:08 | disposition home or self-care (01) ==
LOC: HO.HKA 15:26
PROVIDERS: Visit Provider Internal Medicine Nephrology
DX: I10 Essential (primary) hypertension (principal)
CPT/HCPCS: 99214

== ENCOUNTER → 2024-06-04 15:26 | Outpatient (BNVA) | payer OTHER, SELFPAY | PROVIDERS: Visit Provider Internal Medicine Nephrology ==

== ENCOUNTER 2024-10-03 07:33 | Outpatient (REF) | payer OTHER, SELFPAY ==
--- OUTSIDE RECORDS SUMMARY | 2024-10-03 07:35 | XMS_ITS | Encounter Summary ---
Author Organization [facility] Address [address] [place] [id number] Phone Care Team Providers Care Diplomatic Courier Name Role Phone Laura Monte MD Primary Care Provider [phone] Encounter Details Date Type Department Care Team (Late st Contact Info) Description 03/22/2017 Conversion Encounter [facility] [address] [place] [address] Social History Tobacco Use Types Packs/Day Years Used Date Smoking Tobacco: Never Assessed Comments Unknown Sex and Gender Information Value Date Recorded Sex Assigned at Not on file Legal Sex Female 4:21 PM EDT Gender Identity Not on file Sexual Orientation Not on file documented as of this encounter Plan of Treatment Not on file documented as of this encounter Visit Diagnoses Not on filedocumented in this encounter Care Teams Diplomatic Courier Relationship Specialty Start Date End Date Laura Monte MD [address] [place] [address] PCP - General 03/16/17 documented as of this encounter
--- OUTSIDE RECORDS SUMMARY | 2024-10-03 07:35 | XMS_ITS | Encounter Summary ---
Author Organization [facility] Address [address] [place] [address] Phone Care Team Providers Care Hot Roller Name Role Phone Unavailable Primary Care Provider Unavailabl e Reason for Visit * Reason Comments Med Refill Encounter Details Date Type Department Care Team (Late st Contact Info) Description 03/01/2021 Refill [facility] [address] [place] [address] Ross Vanegas MD [address] [facility] [address] [place] [address] Social History Tobacco Use Types Packs/Day Years Used Date Smoking Tobacco: Every Day Alcohol Use Standard Drinks/Week Comments Yes 0 (1 standard drink = 0.6 oz pure alcohol) Alcoholic Drinks/day: Occasional social drink Comments Unknown Sex and Gender Information Value Date Recorded Sex Assigned at Not on file Legal Sex Female 5:10 PM EST Gender Identity Not on file Sexual Orientation Not on file documented as of this encounter Miscellaneous Notes * Telephone Encounter - Ross Vanegas MD - 03/01/2021 5:56 AM EDT Needs f/u in 5-6 weeks with me 1. tell them I sent rx but no refils 2. They must see me or have a telehealth visit with me before I can renew it again 3. when u call them be sure to make the f/u appt at the same time u inform them th rx was sent by me documented in this encounter Plan of Treatment Not on file documented as of this encounter Visit Diagnoses Not on filedocumented in this encounter
--- OUTSIDE RECORDS SUMMARY | 2024-10-03 07:35 | XMS_ITS | Clinical Summary ---
Author Organization [facility] Address [address] [place] [address] Phone Care Team Providers Care Water Valve Repairer Name Role Phone Unavailable Primary Care Provider Unavailabl e Medications predniSONE (DELTASONE) 20 MG tablet TAKE 2 TABLETS BY MOUTH DAILY FOR RASH FOR 5 DAYS 1 Active albuterol HFA (PROVENTIL HFA;VENTOLIN HFA) 108 (90 Base) MCG/ACT inhaler TAKE 1 PUFF 4 TIMES A DAY NEEDED FOR SHORTNESS OF BREATH 1 Active doxycycline (MONODOX) 100 MG capsule TAKE 1 CAPSULE BY MOUTH TWICE A DAY FOR 10 DAYS 1 Active labetalol (NORMODYNE) 200 MG tablet TAKE 1 TABLET BY MOUTH THREE TIMES A DAY 90 tablet 2 3 Active Active Problems Problem Noted Date Diagnosed Date Blindness in one eye 04/11/2023 04/11/2023 Overview (04/11/2023): Left eye Eczema 04/11/2023 04/11/2023 Hearing loss 04/11/2023 04/11/2023 Overview (04/11/2023): left ear Asthma 04/11/2023 04/11/2023 Benign essential hypertension 05/02/2021 Tobacco dependence syndrome 05/02/2021 Immunizations Name Administration Dates Next Due DTP 10/30/1995, 2,1990,1990,1 09/25/1989 HPV, Quadrivalent 08/13/2008,2007 Hep B, Adolescent or Pediatric 01/17/2002,1995,10/30/1995 Hib (PRP-T) 10/30/1995,1990,1990 ,1990 Influenza TIV (IM) 05/02/2007,08/18/1991 MMR 10/30/1995,08/18/1991 OPV 10/30/1995,11/10/1991,1990 ,1990 Td 01/17/2002 Family History Medical History Relation Comments Hypertension Father Relation Status Comments Father Alive Mother Alive Social History Tobacco Use Types Packs/Day Years [...] on file Sexual Orientation Not on file Last Filed Vital Signs Vital Sign Reading Time Taken Comments Blood Pressure - - Pulse - - Temperature - - Respiratory Rate - - Oxygen Saturation - - Inhaled Oxygen Concentration - - Weight - - Height 154.9 cm (5' 1 ) 07/22/2020 12:00 PM EST Body Mass Index - - Plan of Treatment Health Maintenance Due Date Last Done Comments Pneumococcal Vaccine: Pediat rics (0 to 5 Years) and At-Risk Patients (6 to 64 Years) (1 of 2 - PCV) 1996 Influenza Vaccine (#1) 2024 05/02/2007, 1991 Hepatitis B Vaccine Completed 01/17/2002, 01/30/1996, 10/30/[address] [address] [place] [address] [facility]
--- OUTSIDE RECORDS SUMMARY | 2024-10-03 07:35 | XMS_ITS | Encounter Summary ---
Author Organization [facility] Address [address] [place] [address] Phone Care Team Providers Care Field Support Rep Name Role Phone Unavailable Primary Care Provider Unavailabl e Reason for Visit * Reason Comments Med Refill Encounter Details Date Type Department Care Team (Late st Contact Info) Description 05/22/2023 Refill [facility] [address] [place] [address] Carlitos Ha MD Social History Tobacco Use Types Packs/Day Years [...]
--- OUTSIDE RECORDS SUMMARY | 2024-10-03 07:35 | XMS_ITS | Clinical Summary ---
Author Organization [facility] Address [address] [place] [address] Phone Care Team Providers Care Battery Tester Field Name Role Phone Laura Monte MD Primary Care Provider [phone] Immunizations Immunization Administration Dates Next Due DTP 10/30/1995, 2,1990,1990,1990 HPV, Quadrivalent 2007 Hep B, ped/adol 01/17/2002,01/30/1996,10/30/1995 Hib (PRP-T) 10/30/1995, 1,1990,1989 Influenza, injectable, trivalent 05/02/2007,08/06 MMR 10/30/1995,08/18/1991 OPV 10/30/1995, 2,1990,1989 Td (adult) (MBL), 2 Lf tetan us toxoid, PF, adsorbed 01/17/2002 Family History Relation Name Status Comments Father Father: Hyperte nsion, Elevated cholesterol Mother Mother: thyroid Other Family history of Deafness, Family history of Migraines, Family history of Asthma Social History Tobacco Use Types Packs/Day Years Used Date Smoking Tobacco: Never Assessed Comments Unknown Sex and Gender Information Value Date Recorded Sex Assigned at Not on file Legal Sex Female 4:21 PM EDT Gender Identity Not on file Sexual Orientation Not on file Plan of Treatment Health Maintenance Due Date Last Done Comments DTaP,Tdap,and Td Vaccines (6 - Tdap) 01/18/2002 01/17/2002, 10/30/1995, 11/10/1991, Additional history exists Varicella Vaccines (1 of 2 - 13+ 2-dose series) 2003 Consider Men B Vaccine (1 of 2 - Bexsero 2-dose series) 2006 HPV Vaccines (2 - 3-dose series) 06/13/2007 2007 Influenza Vaccines (#1) 2024 05/02/2007, 08/18 COVID-19 Vaccine ( - 2023- season) 2024 HIB Vaccines Aged Out 10/30/1995, 04/1991, 1990, Additional history exists No longer eligible based on patient's age to complete this topic IPV Vaccines Completed 10/30/1995, 01/1992, 1990, Additional history exists MMR Vaccines Completed 10/30/1995, 08/18/1991 Hepatitis B Vaccines Completed 01/17/2002, 01/30/1996, 10/30/1995 Hepatitis A Vaccines Aged Out No long er eligible based on patient's age to complete this topic Men B Vaccine Aged Out No longer elig ible based on patient's age to complete this topic Meningococcal Vaccine Aged Out No arslan shabana eligible based on patient's age to complete this topic Pneumococcal Vaccine Aged Out No long er eligible based on patient's age to complete this topic Care Teams Battery Tester Field Relationship Specialty Start Date End Date Laura Monte MD [address] [place] [address] [place] [id number] PCP - General 03/16/17
[2024-10-03 08:38] LABS: Anion Gap 13 (12-20); Blood Urea Nitrogen 14 mg/dL (9-16); Carbon Dioxide 24 mmol/L (22-29); Chloride 105 mmol/L (96-108); Estimated Glomerular Filt Rate > 60; Potassium 4.1 mmol/L (3.3-5.1); Sodium 138 mmol/L (135-145)
== END 2024-10-03 07:34 | disposition home or self-care (01) ==
LOC: HO.LAB 07:33
PROVIDERS: Visit Provider Internal Medicine Nephrology
DX: I10 Essential (primary) hypertension (principal)
CPT/HCPCS: 36415; 80051; 82565; 84520

== ENCOUNTER 2024-10-08 13:52 | Outpatient (AMB) | payer OTHER, SELFPAY ==
[2024-10-08 13:55] VITALS: BP 160/90; PULSE 76; O2SAT 99; BMI 26.6
--- NOTE | 2024-10-08 13:55 | HO.NEPHOV_ITS ---
Vital Signs 10/08/24 13:55 Height 5 ft 3 in Weight 150 lb 4 oz BMI 26.6 BP 160/90 H Blood Pressure Location Lt brachial Pulse 76 Pulse Source Pulse Oximeter Pulse Oximetry (%) 99 Oxygen Delivery Method Room Air Intake Visit Reasons: Hypertension-LVM Diagnostic Imaging Manager Required: No Accompanied by: Mother Allergies No Known Allergies [No Known Allergies*] Allergy (Verified 10/08/24 13:56) HPI Comments Details: Nicolasa was seen in follow up for uncontrolled hypertension. Nicolasa has hypertension for such a long time and had compliance issues with medications in the past. She had high BMI which improved after quitting drinking. She is currently employed. She was investigated in the past rule out secondary etiologies for hypertension. Currently she takes labetalol 400 mg at 06:00 and 6 PM and Spironolactone 100 mg daily as well as Nifedipine 120 mg daily. She denies any headache, double vision, chest pain, chest tightness, palpitation, shortness of breath, paroxysmal nocturnal dyspnea, orthopnea, pedal edema or urinary symptoms. She has not known to have any thyroid dysfunction, or high calcium levels. She was not tested for any sleep apnea. She has not very strict with low-sodium diet. She denies any history of retinopathy. Her renal functions have been normal. [facility] Medical History (Updated 09/28/23 @ 10:15 by Carlitos Ha MD) Deaf Blindness Asthma HTN (hypertension) Social History Alcohol intake: never Patient Tobacco Use Status: Current everyday Tobacco user Substance Use Type: Marijuana Review of Systems Const All systems reviewed & are unremarkable except as noted in HPI and below Physical Exam Vital Signs: Last Vital Signs Pulse 76 10/08/24 13:55 BP 160/110 H 10/08/24 13:55 Pulse Ox 99 10/08/24 13:55 Oxygen Delivery Method Room Air 10/08/24 13:55 BMI result Body Mass Index 26.6 Const General: comfortable and no acute distress Orientation/consciousness: patient oriented x3 HEENT Head: Yes normocephalic Mouth: Normal oral and palatal mucosa present Eyes EOM: EOMs intact bilaterally Neck Neck: Yes supple Resp Auscultation: clear to auscultation bilaterally Cardio Jugular venous distension: no JVD Rate: regular rate GI Palpation (GI): Soft to palpation Auscultation: normal bowel sounds General: Yes no CVA tenderness Back/Spine/Pelvis Back: no CVA tenderness Skin General skin exam: no rashes or lesions noted Neuro General: patient oriented x3 and moves all extremities Extrem General: Yes no pedal edema Results Reviewed Nephrology Results: Sodium 138 mmol/L (135-145) 10/03/24 Potassium 4.1 mmol/L (3.3-5.1) 10/03/24 Chloride 105 mmol/L (96-108) 10/03/24 Carbon Dioxide 24 mmol/L (22-29) 10/03/24 BUN 14 mg/dL (9-16) 10/03/24 Creatinine 0.69 mg/dL (0.5-1.4) 10/03/24 Renal US 01/11/24 Assessment & Plan Assessment & Plan (1) HTN (hypertension): Code(s): I10 - Essential (primary) hypertension Category: Medical Qualifiers: Hypertension type: primary hypertension Qualified Code(s): I10 - Essential (primary) hypertension Plan Nicolasa has hypertension for a long time. She has been worked up for secondary etiology in the past. She has not had follow-up with any doctors for many years prior to seeing me again recently. She can continue on labetalol 400 mg bid along with spironolactone 100 mg daily . I increased her Nifedipine to 60 mg bid. Doppler of renal arteries showed newly elevated velocity in the mid left renal artery compared to the prior study. This is consistent with a moderate 60% stenosis. In this location and in a patient of this age, leading diagnosis would be fibromuscular dysplasia. She may need a CTA of the abdomen and pelvis with without and with intravenous contrast. Her renal functions are normal. W/U again to R/O secondary etiology of hypertension is negative otherwise ( so far). I shall start her on ARB if her BP is not coming down. She may need a sleep study as well as a renal angio. I discussed all the potential complications of uncontrolled hypertension including end-organ damages, coronary artery disease, CVA, renal failure. She needs to cut back sodium in the diet. She needs to maintain good exercise. All questions answered Medications: Refilled labetalol 400 mg (2 x 200 mg) PO BID 360 tabs 4RF nifedipine ER 120 mg (2 x 60 mg) PO DAILY 30 days 60 tabs 4RF spironolactone 100 mg PO DAILY 90 tabs 3RF Coding Level of Care Code Est Pt Level 4 (98503) Diagnoses Primary hypertension I10 Hypertension type: primary hypertension
--- OUTSIDE RECORDS SUMMARY | 2024-10-08 16:36 | XMS_ITS | Clinical Summary ---
Author Organization [facility] Address [address] [place] [address] Phone Care Team Providers Care Card Tender Name Role Phone Laura Monte MD Primary Care Provider [phone] Immunizations Immunization Administration Dates Next Due DTP [...] age to complete this topic Care Teams Card Tender Relationship Specialty Start Date End Date Laura Monte MD [address] [place] [address] [place] [phone] PCP - General 03/16/17
--- OUTSIDE RECORDS SUMMARY | 2024-10-08 16:36 | XMS_ITS | Encounter Summary ---
Author Organization [facility] Address [address] [place] [address] Phone Care Team Providers Care Animal Behaviourist Name Role Phone Laura Monte MD Primary Care Provider [phone] Encounter Details Date Type Department Care Team (Late st Contact Info) Description 03/22/2017 Conversion Encounter [facility] [place] [address] [place] [address] Social History Tobacco Use Types Packs/Day Years [...] on filedocumented in this encounter Care Teams Animal Behaviourist Relationship Specialty Start Date End Date Laura Monte MD [address] [place] [address] PCP - General 03/16/17 documented as of this encounter
--- OUTSIDE RECORDS SUMMARY | 2024-10-08 16:36 | XMS_ITS | Clinical Summary ---
Author Organization [facility] Address [address] [place] [address] Phone Care Team Providers Care Appliance Installer Name Role Phone Unavailable Primary Care Provider [...] B Vaccine Completed 01/17/2002, 01/30/1996, 10/30/[address] [place] [address] [facility]
--- OUTSIDE RECORDS SUMMARY | 2024-10-08 16:36 | XMS_ITS | Encounter Summary ---
Author Organization [facility] Address [address] [place] [address] Phone Care Team Providers Care Retail Service Representative Name Role Phone Unavailable Primary Care Provider Unavailabl e Reason for Visit * Reason Comments Med Refill Encounter Details Date Type Department Care Team (Late st Contact Info) Description 05/22/2023 Refill [facility] [address] [place] [address] Carlitos Ha MD Social History [...]
--- OUTSIDE RECORDS SUMMARY | 2024-10-08 16:36 | XMS_ITS | Encounter Summary ---
Author Organization [facility] Address [address] [place] [address] Phone Care Team Providers Care Price Changer Name Role Phone Unavailable Primary Care Provider Unavailabl e Reason for Visit * Reason Comments Med Refill Encounter Details Date Type Department Care Team (Late st Contact Info) Description 03/01/2021 Refill [facility] [address] [place] [address] Ross Vanegas MD [address] [facility] [address] [place] [address] Social History Tobacco Use Types [...]
== END 2024-10-08 14:17 | disposition home or self-care (01) ==
PROVIDERS: Visit Provider Internal Medicine Nephrology
DX: I10 Essential (primary) hypertension (principal)
CPT/HCPCS: 99214

== ENCOUNTER → 2024-10-08 13:52 | Outpatient (BNVA) | payer OTHER, SELFPAY | PROVIDERS: Visit Provider Internal Medicine Nephrology ==

== ENCOUNTER 2025-01-30 15:09 | Outpatient (AMB) | payer OTHER, SELFPAY ==
--- OUTSIDE RECORDS SUMMARY | 2025-01-30 15:16 | XMS_ITS | Clinical Summary ---
Author Organization [facility] Address [address] [place] [address] Phone Care Team Providers Care Senior Government Program Analyst Name Role Phone Laura Monte MD Primary Care Provider [phone] Immunizations Immunization Administration Dates Next Due DTP [...] of 2 - 13+ 2-dose series) 2003 HPV Vaccines (2 - 3-dose series) 06/13/2007 2007 Influenza Vaccines (#1) 2024 05/02/2007, 08/18 COVID-19 Vaccine (2023- season) 2024 HIB Vaccines Aged Out 10/30/1995, [...] age to complete this topic Care Teams Senior Government Program Analyst Relationship Specialty Start Date End Date Laura Monte MD [address] [place] [address] [place] [id number] PCP - General 03/16/17
[2025-01-30 15:28] VITALS: BP 138/90; PULSE 71; O2SAT 96; BMI 26.9
--- NOTE | 2025-01-30 15:28 | HO.NEPHOV ---
Vital Signs 01/30/25 15:28 Height 5 ft 3 in Weight 152 lb 2 oz BMI 26.9 BP 138/90 H Blood Pressure Location Lt brachial Position Sitting Pulse 71 Pulse Source Pulse Oximeter Pulse Oximetry (%) 96 Oxygen Delivery Method Room Air Intake Visit Reasons: 3 [place] [facility] Manager Target Required: No Accompanied by: Self / Same As Patient Allergies No Known Allergies (No Known Allergies*) Allergy (Verified 01/30/25 15:30) Do you need a note to return to daycare/school/sports/work: No HPI Comments Details: Pt here for uncontrolled HTN Poor compliance with medication in the past, has been taking her medications as prescribed. Spironolactone 100mg daily, labetolol 400mg BID, nifedipine 60mg BID she states she has lost almost 100 pounds gradually over last few years- reports with alcohol abstinence states she is minimizing her salt, though does not totally avoid it in her diet smokes 1ppd of cigarettes, but notes this has been cut down from almost 2 ppd her renal function tests are normal her blood pressure has improved significantly this visit she states she is feeling well She denies any headache, double vision, chest pain, chest tightness, palpitation, shortness of breath, paroxysmal nocturnal dyspnea, orthopnea, pedal edema or urinary symptoms. [facility] Medical History Deaf Blindness Asthma HTN (hypertension) Social History Alcohol intake: never Patient Tobacco Use Status: Current everyday Tobacco user Substance Use Type: Marijuana Review of Systems Const Denies fatigue, Denies headache(s) and Denies malaise ENT Denies dizziness and Denies headache(s) Card Denies chest pain, Denies lightheadedness and Denies dyspnea Resp Denies dyspnea GI Denies abdominal pain Denies hematuria, Denies difficulty voiding, Denies dysuria and Denies flank pain Musc Reports as per HPI and Denies arthralgias Skin/Breast Denies rash Neuro Denies dizziness and Denies headache(s) Endo Denies fatigue Physical Exam Vital Signs: Last Vital Signs Pulse 71 01/30/25 15:28 BP 138/90 H 01/30/25 15:28 Pulse Ox 96 01/30/25 15:28 Oxygen Delivery Method Room Air 01/30/25 15:28 BMI result Body Mass Index 26.9 Const General: comfortable and no acute distress Orientation/consciousness: patient oriented x3 HEENT Head: Yes normocephalic Mouth: Normal oral and palatal mucosa present Eyes EOM: EOMs intact bilaterally Neck Neck: Yes supple Resp Auscultation: clear to auscultation bilaterally Cardio Jugular venous distension: no JVD Rate: regular rate GI Palpation (GI): Soft to palpation Auscultation: normal bowel sounds General: Yes no CVA tenderness Back/Spine/Pelvis Back: no CVA tenderness Skin General skin exam: no rashes or lesions noted Neuro General: patient oriented x3 and moves all extremities Extrem General: Yes no pedal edema Results Reviewed Nephrology Results: Sodium, (135-145) 138 mmol/L 10/03/24 Potassium, (3.3-5.1) 4.1 mmol/L 10/03/24 Chloride, (96-108) 105 mmol/L 10/03/24 Carbon Dioxide, (22-29) 24 mmol/L 10/03/24 BUN, (9-16) 14 mg/dL 10/03/24 Creatinine, (0.5-1.4) 0.69 mg/dL 10/03/24 Renal US 01/11/24 Assessment & Plan Assessment & Plan (1) HTN (hypertension): Code(s): I10 - Essential (primary) hypertension Category: Medical Qualifiers: Hypertension type: primary hypertension Qualified Code(s): I10 - Essential (primary) hypertension Plan Nicolasa has hypertension for a long time. She has been worked up for secondary etiology in the past. She can continue on labetalol 400 mg bid along with spironolactone 100 mg daily, and nifedipine 60mg BID. Doppler of renal arteries showed newly elevated velocity in the mid left renal artery compared to the prior study. This is consistent with a moderate 60% stenosis. In this location and in a patient of this age, leading diagnosis would be fibromuscular dysplasia. She may need a CTA of the abdomen and pelvis with without and with intravenous contrast. Her renal functions are normal. Her blood pressure has improved; she will work on weight loss and cutting back on cigarettes over the next 3 months My consider ARB if her blood pressure does not continue to come down. she will work on exercise, weight loss, avoiding salt in her diet, quit smoking. F/u with Dr Ha in 3 months Coding Level of Care Code Est Pt Level 4 (53454) Diagnoses Primary hypertension I10 Hypertension type: primary hypertension
== END 2025-01-30 15:44 | disposition home or self-care (01) ==
PROVIDERS: Visit Provider Internal Medicine Nephrology
DX: I10 Essential (primary) hypertension (principal)
CPT/HCPCS: 99214

== ENCOUNTER 2025-06-03 15:39 | Outpatient (AMB) | payer OTHER, SELFPAY ==
--- NOTE | 2025-06-03 15:42 | HO.NEPHOV ---
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 Nicolasa has hypertension for such a long time and had compliance issues with medications in the past. She had high BMI which improved after quitting drinking. She is currently employed. She was investigated in the past rule out secondary etiologies for hypertension. Currently she takes labetalol 400 mg at 06:00 and 6 PM and Spironolactone 100 mg daily as well as Nifedipine 120 mg daily. She denies any headache, double vision, chest pain, chest tightness, palpitation, shortness of breath, paroxysmal nocturnal dyspnea, orthopnea, pedal edema or urinary symptoms. She has not known to have any thyroid dysfunction, or high calcium levels. She was not tested for any sleep apnea. She has not very strict with low-sodium diet. She denies any history of retinopathy. Her renal functions have been normal. [facility] Medical History Deaf Blindness Asthma HTN (hypertension) Social History Alcohol intake: never Patient Tobacco Use Status: Current everyday Tobacco user Substance Use Type: Marijuana Review of Systems Const All systems reviewed & are unremarkable except as noted in HPI and below Physical Exam Vital Signs: Last Vital Signs BP 130/90 H 06/03/25 15:43 BMI result Body Mass Index 26.5 Const General: comfortable and no acute distress Orientation/consciousness: patient oriented x3 HEENT Head: Yes normocephalic Mouth: Normal oral and palatal mucosa present Neck Neck: Yes supple Resp Auscultation: clear to auscultation bilaterally Cardio Jugular venous distension: no JVD Rate: regular rate GI Palpation (GI): Soft to palpation Auscultation: normal bowel sounds General: Yes no CVA tenderness Back/Spine/Pelvis Back: no CVA tenderness Skin General skin exam: no rashes or lesions noted Neuro General: patient oriented x3 and moves all extremities Extrem General: Yes no pedal edema Results Reviewed Nephrology Results: Sodium, (135-145) 138 mmol/L 10/03/24 Potassium, (3.3-5.1) 4.1 mmol/L 10/03/24 Chloride, (96-108) 105 mmol/L 10/03/24 Carbon Dioxide, (22-29) 24 mmol/L 10/03/24 BUN, (9-16) 14 mg/dL 10/03/24 Creatinine, (0.5-1.4) 0.69 mg/dL 10/03/24 Renal US 01/11/24 Assessment & Plan Assessment & Plan (1) HTN (hypertension): Code(s): I10 - Essential (primary) hypertension Category: Medical Qualifiers: Hypertension type: primary hypertension Qualified Code(s): I10 - Essential (primary) hypertension (2) Renal artery stenosis: Code(s): I70.1 - Atherosclerosis of renal artery Category: Medical Plan Nicolasa has hypertension for a long time. She has been worked up for secondary etiology in the past. She has not had follow-up with any doctors for many years prior to seeing me again recently. She can continue on labetalol 400 mg bid along with spironolactone 100 mg daily . I increased her Nifedipine to 60 mg bid. Doppler of renal arteries showed newly elevated velocity in the mid left renal artery compared to the prior study. This is consistent with a moderate 60% stenosis. In this location and in a patient of this age, leading diagnosis would be fibromuscular dysplasia. She may need a CTA of the abdomen and pelvis with without and with intravenous contrast. Her renal functions are normal. W/U again to R/O secondary etiology of hypertension is negative otherwise ( so far). I shall start her on ARB if her BP is not coming down. She may need a sleep study as well as a renal angio. I discussed all the potential complications of uncontrolled hypertension including end-organ damages, coronary artery disease, CVA, renal failure. She needs to cut back sodium in the diet. She needs to maintain good exercise. All questions answered Orders: Orders Creatinine Today I10 - Essential (primary) hypertension, I70.1 - Atherosclerosis of renal artery Electrolytes Today I10 - Essential (primary) hypertension, I70.1 - Atherosclerosis of renal artery Blood Urea Nitrogen Today I10 - Essential (primary) hypertension, I70.1 - Atherosclerosis of renal artery Coding Level of Care Code Est Pt Level 4 (71351) Diagnoses Primary hypertension I10 Hypertension type: primary hypertension Renal artery stenosis I70.1
[2025-06-03 15:43] VITALS: BP 130/90; BMI 26.5
--- OUTSIDE RECORDS SUMMARY | 2025-06-03 19:54 | XMS_ITS | Clinical Summary ---
Author Organization [facility] Address [address] [place] [address] Phone Care Team Providers Care Eligibility Manager Name Role Phone Laura Monte MD Primary Care Provider [phone] Immunizations Immunization Administration Dates Next Due DTP [...] 3-dose series) 06/13/2007 2007 Influenza Vaccines (#1) 2025 05/02/2007, 08/18 COVID-19 Vaccine (2024- season) 2025 HIB Vaccines Aged Out 10/30/1995, 04/1991, 1990, [...] age to complete this topic Care Teams Eligibility Manager Relationship Specialty Start Date End Date Laura Monte MD [address] [place] [address] [place] [id number] PCP - General 03/16/17
--- OUTSIDE RECORDS SUMMARY | 2025-06-03 19:54 | XMS_ITS | Encounter Summary ---
Author Organization [facility] Address [address] [place] [address] Phone Care Team Providers Care Illuminator Name Role Phone Unavailable Primary Care Provider Unavailabl e Reason for Visit * Reason Comments Med Refill Encounter Details Date Type Department Care Team (Late st Contact Info) Description 03/01/2021 Refill [facility] [address] [place] [address] Ross Vanegas MD [address] [facility] [address] [place] [address] Social History Tobacco Use Types [...]
--- OUTSIDE RECORDS SUMMARY | 2025-06-03 19:54 | XMS_ITS | Encounter Summary ---
Author Organization [facility] Address [address] [place] [address] Phone Care Team Providers Care Family Consumer Scientist Name Role Phone Unavailable Primary Care Provider Unavailabl e Reason for Visit * Reason Comments Med Refill Encounter Details Date Type Department Care Team (Late st Contact Info) Description 05/22/2023 Refill [facility] [address] [place] [address] Carlitos Ha MD Social History [...]
--- OUTSIDE RECORDS SUMMARY | 2025-06-03 19:54 | XMS_ITS | Clinical Summary ---
Author Organization [facility] Address [address] [place] [address] Phone Care Team Providers Care Arts And Crafts Teacher Name Role Phone Unavailable Primary Care Provider [...] 04/11/2023 04/11/2023 Benign essential hypertension 05/02/2021 Tobacco use disorder 05/02/2021 Immunizations Immunization Administration Dates Next Due DTP 10/30/1995, 2,1990,1990,1 [...] Due Date Last Done Comments Pneumococcal Vaccine: Peds ( 0 to 5 Years) and At-Risk Patients (6 to 49 Years) (1 of 2 - PCV) 2009 Influenza Vaccine (#1) 2025 05/02/2007, 1991 Hepatitis B Vaccine Completed 01/17/2002, 01/30/1996, 10/30/[address] [place] [address] [facility]
--- OUTSIDE RECORDS SUMMARY | 2025-06-03 19:54 | XMS_ITS | Encounter Summary ---
Author Organization [facility] Address [address] [place] [address] Phone Care Team Providers Care Windows And Doors Installer Name Role Phone Laura Monte MD Primary Care Provider [phone] Encounter Details Date Type Department Care Team (Late st Contact Info) Description 03/22/2017 Conversion Encounter [facility] [place] [address] [place] [address] Social History Tobacco Use Types Packs/Day Years [...] on filedocumented in this encounter Care Teams Windows And Doors Installer Relationship Specialty Start Date End Date Laura Monte MD [address] [place] [address] PCP - General 03/16/17 documented as of this encounter
== END 2025-06-03 15:58 | disposition home or self-care (01) ==
LOC: HO.HKA 15:39
PROVIDERS: Visit Provider Internal Medicine Nephrology
DX: I10 Essential (primary) hypertension (principal); I70.1 Atherosclerosis of renal artery
CPT/HCPCS: 99214